=== PATIENT | male | born 1970 | race Hispanic/Latino ===

== ENCOUNTER 2019-12-07 13:24 | Outpatient (CLI) | payer MEDICARE, BC ==
--- NOTE | 2019-12-07 14:15 | RAD ---
2 VIEW CHEST: Date: 12/07/2019 HISTORY: Shortness of breath. No comparison. FINDINGS: There are rather diffuse bilateral hazy peripheral infiltrates seen throughout both lungs. COVID pneu monia should be excluded. Heart and mediastinum unremarkable. IMPRESSION: Bilateral peripheral hazy infiltrates. POS: AH
== END 2019-12-07 13:25 | disposition home or self-care (01) ==
LOC: BICRAD 13:24
PROVIDERS: ATTEND Internal Medicine
DX: R06.02 Shortness of breath (principal); R91.8 Other nonspecific abnormal finding of lung field
CPT/HCPCS: 71046

== ENCOUNTER 2021-08-30 13:37 | Outpatient (CLI) | payer MEDICARE, BC | END 2021-08-30 13:38 | disposition home or self-care (01) | LOC: ULT 13:37 | PROVIDERS: ATTEND Internal Medicine Gastroenterology | DX: R79.89 Other specified abnormal findings of blood chemistry (principal); R16.1 Splenomegaly, not elsewhere classified; Z86.010 Personal history of colon polyps | CPT/HCPCS: 76705 ==

== ENCOUNTER 2021-09-10 14:50 | Outpatient (CLI) | payer MEDICARE, BC ==
[2021-09-11 00:11] LABS: SARS-CoV-2 PCR by NAA Not Detected (NotDetected)
== END 2021-09-10 14:51 | disposition home or self-care (01) ==
LOC: LABBT 14:50
PROVIDERS: ATTEND Internal Medicine Gastroenterology
DX: R79.89 Other specified abnormal findings of blood chemistry (principal); Z20.822 Contact with and (suspected) exposure to COVID-19
CPT/HCPCS: U0003; U0005

== ENCOUNTER 2021-09-13 08:01 | Day surgery (SDC) | payer MEDICARE, BC ==
[2021-09-11 14:14] VITALS: BMI 27.4
[2021-09-13 08:05] LABS: #Basophils 0.1 thou/uL (0.0-0.2); #Eosinphils 0.5 thou/uL (0.0-0.7); #Lymphocytes 0.6 thou/uL (1.20-3.40); #Monocytes 0.3 thou/uL (0.11-0.59); #Neutrophils 2.7 thou/uL (1.40-6.50); %Basophils 1.3 % (0.0-1.0); %Lymphocytes 14.1 % (21.0-51.0); %Monocytes 8.1 % (0.0-10.0); %Neutrophils 64.5 % (42.0-75.0); Mean Corpuscular HGB CONC 32.1 g/dL (32.0-36.0); Mean Corpuscular Hemoglobin 34.2 pg (27.0-31.0); Red Blood Cell (RBC) Count 2.93 mill/uL (4.70-6.10); White Blood Cell (WBC) Count 4.2 thou/uL (4.8-10.8)
[2021-09-13 08:10] LABS: Prothrombin Time 13.3 sec (12.0-14.7)
[2021-09-13 08:11] LABS: PTT 26.6 sec (22.9-36.1)
[2021-09-13 08:26] LABS: Mean Platelet Volume 8.2 fL (7.4-10.4); Platelet Count 77 thou/uL (130-400); RBC Distribution Width 14.4 % (11.5-14.5)
[2021-09-13 11:56] VITALS: BP 206/109; TEMP 98.4
== END 2021-09-13 10:05 | disposition home or self-care (01) ==
LOC: ULT 08:01
PROVIDERS: ATTEND Internal Medicine Gastroenterology
DX: R79.89 Other specified abnormal findings of blood chemistry (principal); Z53.09 Procedure and treatment not carried out because of other contraindication; Z79.84 Long term (current) use of oral hypoglycemic drugs; Z79.899 Other long term (current) drug therapy
CPT/HCPCS: 36415; 85025; 85610; 85730

== ENCOUNTER → 2022-01-31 | Day surgery (SDC) | payer MEDICARE, BC ==
[~2022-01-31] MED LIST: Prevnar 13-Val Conj/PF 0.5 ML SYRINGE IM ONE
[2022-01-31 08:19] LABS: #Eosinphils 0.4 thou/uL (0.0-0.7); #Lymphocytes 0.6 thou/uL (1.20-3.40); #Monocytes 0.4 thou/uL (0.11-0.59); #Neutrophils 2.5 thou/uL (1.40-6.50); %Basophils 0.8 % (0.0-1.0); %Eosinophils 10.8 % (0.0-10.0); %Lymphocytes 15.9 % (21.0-51.0); %Monocytes 9.6 % (0.0-10.0); Hemoglobin 11.1 g/dL (14.0-18.0); Mean Corpuscular HGB CONC 32.3 g/dL (32.0-36.0); Mean Corpuscular Hemoglobin 34.6 pg (27.0-31.0); Mean Platelet Volume 8.8 fL (7.4-10.4); Platelet Count 79 thou/uL (130-400); RBC Distribution Width 13.9 % (11.5-14.5)
[2022-01-31 08:28] LABS: PTT 27.7 sec (22.9-36.1)
== END | disposition home or self-care (01) ==
LOC: ULT 07:42
PROVIDERS: ATTEND Internal Medicine Gastroenterology
DX: R79.89 Other specified abnormal findings of blood chemistry (principal); I12.0 Hypertensive chronic kidney disease with stage 5 chronic kidney disease or end stage renal disease; E11.22 Type 2 diabetes mellitus with diabetic chronic kidney disease; N18.6 End stage renal disease; Z53.09 Procedure and treatment not carried out because of other contraindication; Z99.2 Dependence on renal dialysis
CPT/HCPCS: 36415; 85025; 85610; 85730

== ENCOUNTER 2023-05-31 12:00 | Inpatient (IN) | payer MEDICARE, BC ==
[2023-05-31] MEDS ORDERED: Morphine 2 MG/ML VIAL ONE ×2 (12:55→14:30)
[2023-05-31 13:29] LABS: #Eosinphils 0.2 thou/uL (0.0-0.7); #Monocytes 0.2 thou/uL (0.11-0.59); #Neutrophils 1.9 thou/uL (1.40-6.50); %Basophils 0.7 % (0.0-1.0); %Lymphocytes 14.6 % (21.0-51.0); %Neutrophils 69.7 % (42.0-75.0); Hematocrit 22.9 % (42.0-52.0); Hemoglobin 6.8 g/dL (14.0-18.0); Mean Corpuscular HGB CONC 29.7 g/dL (32.0-36.0); Mean Corpuscular Hemoglobin 28.9 pg (27.0-31.0); Mean Corpuscular Volume 97.4 fl (78.0-98.0); Mean Platelet Volume 12.4 fL (7.4-10.4); Platelet Count 47 10x3/uL (130-400); RBC Distribution Width 20.5 % (11.5-14.5); Red Blood Cell (RBC) Count 2.35 mill/uL (4.70-6.10); White Blood Cell (WBC) Count 2.7 10x3/uL (4.8-10.8)
[2023-05-31 13:42] LABS: INR-International Normal Ratio 1.2; PTT 28.6 sec (22.9-36.1); Prothrombin Time 14.8 sec (12.0-14.7)
[2023-05-31 13:43] LABS: ALT (SGPT) 34 U/L (8-55); AST (SGOT) 42 U/L (5-34); Albumin 3.1 g/dL (3.5-5.0); Alkaline Phosphatase 189 U/L (40-110); Anion Gap 14 mmol/L (10-20); BUN (Urea Nitrogen) 23 mg/dL (8.4-25.7); Bilirubin, Total 1.2 mg/dL (0.2-1.2); Calc. Creatinine Clearance 0 mL/min (70-130); Calcium 8.8 mg/dL (7.8-10.44); Carbon Dioxide 26 mmol/L (22-29); Chloride 99 mmol/L (98-107); Estimated GFR 9; Globulin 3.2 g/dL (2.4-3.5); Glucose 168 mg/dL (70-105); Potassium 3.7 mmol/L (3.5-5.1); Protein, Total 6.3 g/dL (6.0-8.3); Sodium 135 mmol/L (136-145)
[2023-05-31] MEDS ORDERED: Boostrix 0.5 ML (Tdap) VIAL (>/=7 yrs of age) ONE (14:30)
[2023-05-31] MEDS ORDERED: Lidocaine 1% w/Epinephrine 1:100K 20 ML VIAL ONE (15:03)
[2023-05-31] MEDS ORDERED: Ondansetron PF 4 MG/2 ML Vial IVP PRN (17:51)
[2023-05-31] MEDS ORDERED: Dextrose 50% Abboject 50 ML SYRINGE SLOW IVP PRN (17:54)
[2023-05-31] MEDS ORDERED: HumaLOG 300 UNITS/3 ML VIAL SC PRN ×2 (17:54)
[2023-05-31] MEDS ORDERED: Glucagon 1 MG/ML KIT IM PRN (17:54)
[2023-05-31] MEDS ORDERED: Dextrose 5% in Water 1,000 ML IV PRN (17:54)
[2023-05-31] MEDS ORDERED: Octreotide Acetate 1,250 MCG in Sodium Chloride 0.9% 250 ML 250 ML IVPB SCH (18:30)
[2023-05-31 18:41] LABS: Magnesium 2.5 mg/dL (1.6-2.6); Phosphorus 6.3 mg/dL (2.3-4.7)
[2023-05-31 19:37] VITALS: BMI 28.8
[2023-05-31] MEDS ORDERED: hydrALAZINE 20 MG/ML VIAL SLOW IVP PRN (19:52)
[2023-05-31] MEDS ORDERED: cefTRIAXone (ROCEPHIN) 2 GM VIAL ONE (20:38)
[2023-05-31] MEDS ORDERED: Pantoprazole 40 MG VIAL ONE (20:39)
[2023-05-31] MEDS ORDERED: Sodium Chloride 0.9% 100 ML ONE (20:40)
[2023-05-31 20:52] LABS: Hematocrit 21.9 % (42.0-52.0); Hemoglobin 6.7 g/dL (14.0-18.0)
[2023-05-31] MEDS: Pantoprazole 40 MG VIAL IVP SCH (20:54)
[2023-05-31] MEDS: cefTRIAXone\\ROCEPHIN 2 GM in Sodium Chloride 0.9% 100 ML IVPB SCH (20:54)
[2023-05-31] MEDS ORDERED: EPOETIN ALFA-EPBX 10,000 UNITS/ML VIAL SC SCH (21:00)
[2023-06-01] MEDS ORDERED: traMADol HCl 50 MG TAB PO PRN (01:12)
[2023-06-01] MEDS ORDERED: traMADol HCl 50 MG TAB ONE (02:29)
[2023-06-01 08:38] LABS: #Eosinphils 0.1 thou/uL (0.0-0.7); #Monocytes 0.3 thou/uL (0.11-0.59); #Neutrophils 2.1 thou/uL (1.40-6.50); %Basophils 1.4 % (0.0-1.0); %Eosinophils 3.8 % (0.0-10.0); %Lymphocytes 12.4 % (21.0-51.0); %Neutrophils 70.4 % (42.0-75.0); Hematocrit 26.8 % (42.0-52.0); Hemoglobin 8.4 g/dL (14.0-18.0); Mean Corpuscular HGB CONC 31.3 g/dL (32.0-36.0); Mean Corpuscular Hemoglobin 29.3 pg (27.0-31.0); Mean Platelet Volume 13.1 fL (7.4-10.4); RBC Distribution Width 19.4 % (11.5-14.5); Red Blood Cell (RBC) Count 2.87 mill/uL (4.70-6.10); White Blood Cell (WBC) Count 2.9 10x3/uL (4.8-10.8)
[2023-06-01] MEDS: Folic Acid/Vit B Comp W-C PO SCH (08:41)
[2023-06-01] MEDS: Cholecalciferol 1,000 UNITS (25 MCG) TAB PO SCH (08:41)
[2023-06-01 08:45] LABS: Mean Corpuscular Volume 93.4 fl (78.0-98.0); Platelet Count 40 10x3/uL (130-400)
[2023-06-01 08:50] LABS: ALT (SGPT) 27 U/L (8-55); AST (SGOT) 39 U/L (5-34); Albumin 2.7 g/dL (3.5-5.0); Alkaline Phosphatase 145 U/L (40-110); Anion Gap 21 mmol/L (10-20); BUN (Urea Nitrogen) 29 mg/dL (8.4-25.7); Bilirubin, Total 1.4 mg/dL (0.2-1.2); Calc. Creatinine Clearance 11 mL/min (70-130); Calcium 8.1 mg/dL (7.8-10.44); Carbon Dioxide 20 mmol/L (22-29); Chloride 101 mmol/L (98-107); Estimated GFR 6; Glucose 140 mg/dL (70-105); Potassium 4.6 mmol/L (3.5-5.1); Protein, Total 5.7 g/dL (6.0-8.3); Sodium 137 mmol/L (136-145)
[2023-06-01] MEDS: Pantoprazole 40 MG VIAL IVP SCH ×2 (08:59→20:06)
[2023-06-01] MEDS ORDERED: Iopamidol-370 76% 500 ML MDV (1 ML CHARGE) ONE (11:02)
[2023-06-01] MEDS ORDERED: PROPOFOL 20 ML ONE ×2 (11:29→11:54)
[2023-06-01] MEDS ORDERED: Lidocaine 1% PF 5 ML VIAL ONE (11:40)
[2023-06-01] MEDS: cefTRIAXone\\ROCEPHIN 2 GM in Sodium Chloride 0.9% 100 ML IVPB SCH (20:06)
[2023-06-02 08:20] LABS: #Eosinphils 0.1 thou/uL (0.0-0.7); #Monocytes 0.3 thou/uL (0.11-0.59); #Neutrophils 4.5 thou/uL (1.40-6.50); %Basophils 0.6 % (0.0-1.0); %Eosinophils 1.2 % (0.0-10.0); %Lymphocytes 5.6 % (21.0-51.0); %Monocytes 6.2 % (0.0-10.0); %Neutrophils 86.2 % (42.0-75.0); Hemoglobin 8.5 g/dL (14.0-18.0); Mean Corpuscular HGB CONC 30.4 g/dL (32.0-36.0); Mean Corpuscular Hemoglobin 29.3 pg (27.0-31.0); Mean Platelet Volume 12.8 fL (7.4-10.4); RBC Distribution Width 19.9 % (11.5-14.5); White Blood Cell (WBC) Count 5.2 10x3/uL (4.8-10.8)
[2023-06-02 08:25] LABS: Mean Corpuscular Volume 96.6 fl (78.0-98.0); Platelet Count 48 10x3/uL (130-400)
[2023-06-02 08:47] LABS: ALT (SGPT) 22 U/L (8-55); AST (SGOT) 27 U/L (5-34); Albumin 2.9 g/dL (3.5-5.0); Alkaline Phosphatase 133 U/L (40-110); Anion Gap 19 mmol/L (10-20); BUN (Urea Nitrogen) 44 mg/dL (8.4-25.7); Calc. Creatinine Clearance 8 mL/min (70-130); Calcium 7.9 mg/dL (7.8-10.44); Carbon Dioxide 19 mmol/L (22-29); Chloride 103 mmol/L (98-107); Estimated GFR 5; Glucose 185 mg/dL (70-105); Potassium 4.6 mmol/L (3.5-5.1); Protein, Total 5.9 g/dL (6.0-8.3); Sodium 136 mmol/L (136-145)
[2023-06-02 09:04] LABS: Hep B Core Total Ab Non-Reactive (NonReactive); Hep B Core Total Index 0.08 S/CO (0-0.79); Hep B Surf Ag Non-Reactive S/CO (NonReactive); Hep C IgG Ab Non-Reactive S/CO (NonReactive); Hep C Index 0.06 S/CO (0-0.79)
[2023-06-02 09:14] LABS: HBSAB Concentration 59.75 mIU/mL; Hep B Surf AB Reactive (NonReactive)
[2023-06-02] MEDS ORDERED: EPOETIN ALFA-EPBX 10,000 UNITS/ML VIAL IVP SCH (12:00)
[2023-06-02] MEDS: Cholecalciferol 1,000 UNITS (25 MCG) TAB PO SCH (14:55)
[2023-06-02] MEDS: Pantoprazole 40 MG VIAL IVP SCH ×2 (14:56→22:42)
[2023-06-02] MEDS: Nadolol 40 MG TAB PO SCH (14:56)
[2023-06-02] MEDS: Folic Acid/Vit B Comp W-C PO SCH (14:56)
[2023-06-02] MEDS ORDERED: Methocarbamol 500 MG TAB PO SCH (15:04)
[2023-06-02] MEDS: cefTRIAXone\\ROCEPHIN 2 GM in Sodium Chloride 0.9% 100 ML IVPB SCH (20:53)
[2023-06-02] MEDS: Methocarbamol 500 MG TAB PO SCH (22:42)
[2023-06-03 04:21] LABS: #Eosinphils 0.2 thou/uL (0.0-0.7); #Monocytes 0.4 thou/uL (0.11-0.59); #Neutrophils 2.8 thou/uL (1.40-6.50); %Eosinophils 4.9 % (0.0-10.0); %Lymphocytes 9.8 % (21.0-51.0); %Monocytes 11.3 % (0.0-10.0); %Neutrophils 72.7 % (42.0-75.0); Hematocrit 27.2 % (42.0-52.0); Hemoglobin 8.1 g/dL (14.0-18.0); Mean Corpuscular HGB CONC 29.8 g/dL (32.0-36.0); Mean Corpuscular Hemoglobin 28.7 pg (27.0-31.0); Mean Corpuscular Volume 96.5 fl (78.0-98.0); Mean Platelet Volume 12.7 fL (7.4-10.4); RBC Distribution Width 19.3 % (11.5-14.5); Red Blood Cell (RBC) Count 2.82 mill/uL (4.70-6.10); White Blood Cell (WBC) Count 3.9 10x3/uL (4.8-10.8)
[2023-06-03 04:27] LABS: Platelet Count 52 10x3/uL (130-400)
[2023-06-03 05:05] LABS: ALT (SGPT) 19 U/L (8-55); AST (SGOT) 24 U/L (5-34); Albumin 2.7 g/dL (3.5-5.0); Alkaline Phosphatase 125 U/L (40-110); Anion Gap 16 mmol/L (10-20); BUN (Urea Nitrogen) 24 mg/dL (8.4-25.7); Bilirubin, Total 0.9 mg/dL (0.2-1.2); Calc. Creatinine Clearance 12 mL/min (70-130); Calcium 8.3 mg/dL (7.8-10.44); Carbon Dioxide 23 mmol/L (22-29); Chloride 101 mmol/L (98-107); Estimated GFR 8; Globulin 3.1 g/dL (2.4-3.5); Glucose 133 mg/dL (70-105); Potassium 3.4 mmol/L (3.5-5.1); Protein, Total 5.8 g/dL (6.0-8.3); Sodium 137 mmol/L (136-145)
[2023-06-03] MEDS: Pantoprazole 40 MG VIAL IVP SCH (08:26)
[2023-06-03] MEDS: Cholecalciferol 1,000 UNITS (25 MCG) TAB PO SCH (08:26)
[2023-06-03] MEDS: Nadolol 40 MG TAB PO SCH (08:26)
[2023-06-03] MEDS: Methocarbamol 500 MG TAB PO SCH (08:27)
[2023-06-03] MEDS: Folic Acid/Vit B Comp W-C PO SCH (08:27)
[2023-06-03 11:43] VITALS: TEMP 98.3
[2023-06-03 12:21] VITALS: BP 158/77
== END 2023-06-03 16:21 | disposition home or self-care (01) | DRG 981 ==
LOC: ERS 12:00 → ERHOLD 17:54 → 2SE 06-01 05:47 → T4-B 06-03 01:30
PROVIDERS: ADMIT Internal Medicine; ATTEND Internal Medicine
PROC: 0HQ0XZZ Repair Scalp Skin, External Approach (ICD-10-PCS; 2023-05-31)
PROC: 30233N1 Transfusion of Nonautologous Red Blood Cells into Peripheral Vein, Percutaneous Approach (ICD-10-PCS; 2023-05-31)
PROC: 0JD00ZZ Extraction of Scalp Subcutaneous Tissue and Fascia, Open Approach (ICD-10-PCS; 2023-05-31)
PROC: 0W3P8ZZ Control Bleeding in Gastrointestinal Tract, Via Natural or Artificial Opening Endoscopic (ICD-10-PCS; principal; 2023-06-01)
PROC: 0DB78ZX Excision of Stomach, Pylorus, Via Natural or Artificial Opening Endoscopic, Diagnostic (ICD-10-PCS; 2023-06-01)
DX: K31.811 Angiodysplasia of stomach and duodenum with bleeding (principal); N18.6 End stage renal disease; D61.818 Other pancytopenia; I48.92 Unspecified atrial flutter; K76.6 Portal hypertension; I12.0 Hypertensive chronic kidney disease with stage 5 chronic kidney disease or end stage renal disease; I85.00 Esophageal varices without bleeding; E11.22 Type 2 diabetes mellitus with diabetic chronic kidney disease; S01.412A Laceration without foreign body of left cheek and temporomandibular area, initial encounter; S81.812A Laceration without foreign body, left lower leg, initial encounter; W19.XXXA Unspecified fall, initial encounter; S70.12XA Contusion of left thigh, initial encounter; K70.31 Alcoholic cirrhosis of liver with ascites; K31.89 Other diseases of stomach and duodenum; K29.70 Gastritis, unspecified, without bleeding; Z88.4 Allergy status to anesthetic agent; Z87.891 Personal history of nicotine dependence; Z99.2 Dependence on renal dialysis; Y92.22 Religious institution as the place of occurrence of the external cause; Z88.8 Allergy status to other drugs, medicaments and biological substances; Z79.899 Other long term (current) drug therapy
CPT/HCPCS: 36415; 36416; 36430; 49083; 70450; 71045; 74176; 76705; 80053; 82274; 83036; 83605; 83735; 83880; 84100; 84145; 85025; 85610; 85730; 86704; 86850; 86900; 86901; 87040; 88305; 88342; 90715; 90935; C9113; G0257; J0360; J0696; J2272; J2597; J2704; J3490; P9016; Q5106; Q9967

== ENCOUNTER 2024-12-27 10:47 | Inpatient (IN) | payer MEDICARE, BC ==
[2024-12-27 11:36] LABS: #Basophils Less than 0.03 10x3/uL (0.0-0.2); #Eosinophils 0.20 10x3/uL (0.0-0.7); #Monocytes 0.44 10x3/uL (0.11-0.59); #Neutrophils 3.33 10x3/uL (1.40-6.50); %Basophils 0.4 % (0.0-1.0); %Eosinophils 4.2 % (0.0-10.0); %Lymphocytes 16.1 % (21.0-51.0); %Monocytes 9.2 % (0.0-10.0); %Neutrophils 69.7 % (42.0-75.0); Hematocrit 24.4 % (42.0-52.0); Hemoglobin 7.3 g/dL (14.0-18.0); Mean Corpuscular Hemoglobin 31.5 pg (27.0-31.0); Mean Corpuscular Volume 105.2 fL (78.0-98.0); Platelet Count 85 10x3/uL (130-400); Red Blood Cell (RBC) Count 2.32 mill/uL (4.70-6.10); White Blood Cell (WBC) Count 4.78 10x3/uL (4.8-10.8)
[2024-12-27 11:39] LABS: Acetaminophen Less than 10 mcg/mL (Less than 10); Salicylate Less than 8.0 mg/dL (Less than 8.0)
[2024-12-27 11:40] LABS: ALT (SGPT) 27 U/L (Less than 45); AST (SGOT) 39 U/L (11-34); Albumin 2.1 g/dL (3.1-4.5); Alkaline Phosphatase 164 U/L (40-110); Anion Gap 13 mmol/L (10-20); BUN (Urea Nitrogen) 25 mg/dL (8.4-25.7); Bilirubin, Total 1.1 mg/dL (0.3-1.2); Calc. Creatinine Clearance 0 mL/min (70-130); Calcium 8.0 mg/dL (7.8-10.44); Carbon Dioxide 26 mmol/L (22-29); Chloride 100 mmol/L (98-107); Globulin 4.3 g/dL (2.4-3.5); Glucose 113 mg/dL (70-105); Potassium 3.5 mmol/L (3.5-5.1); Sodium 135 mmol/L (136-145)
[2024-12-27] MEDS ORDERED: Lactulose 20 GM (30 mL) UDCUP ONE (11:50)
[2024-12-27 12:48] LABS: Anisocytosis MODERATE=16-30 cells HPF (0-5); Burr Cells SLIGHT = 2-5 cells HPF (0-1); Macrocytosis SLIGHT = 6-15 cells HPF (0-5); Platelet Adequacy Comment Platelets Decreased; Polychromasia SLIGHT = 2-3 cells HPF (0-2); Schistocytes SLIGHT = 2-5 cells HPF (0-1)
[2024-12-27] MEDS ORDERED: Dextrose 50% Abboject 50 ML SYRINGE SLOW IVP PRN (15:41)
[2024-12-27] MEDS ORDERED: Glucagon 1 MG/ML KIT IM PRN (15:41)
[2024-12-27 18:14] VITALS: BMI 27.8
[2024-12-27 19:39] LABS: PTT 37.8 sec (22.9-36.1)
[2024-12-27] MEDS ORDERED: Lactulose 20 GM (30 mL) UDCUP PO PRN (19:41)
[2024-12-27 20:03] LABS: INR-International Normal Ratio 1.2; Prothrombin Time 15.7 sec (12.0-14.7)
[2024-12-27] MEDS: Pantoprazole 40 MG DR.TAB PO SCH (20:30)
[2024-12-27] MEDS ORDERED: Heparin 5,000 UNITS/ML VIAL SC SCH (21:00)
[2024-12-28 04:48] LABS: ALT (SGPT) 19 U/L (Less than 45); AST (SGOT) 29 U/L (11-34); Albumin 1.7 g/dL (3.1-4.5); Alkaline Phosphatase 124 U/L (40-110); Anion Gap 12 mmol/L (10-20); BUN (Urea Nitrogen) 37 mg/dL (8.4-25.7); Bilirubin, Total 0.6 mg/dL (0.3-1.2); Calc. Creatinine Clearance 12 mL/min (70-130); Calcium 8.0 mg/dL (7.8-10.44); Carbon Dioxide 26 mmol/L (22-29); Chloride 102 mmol/L (98-107); Globulin 3.4 g/dL (2.4-3.5); Glucose 161 mg/dL (70-105); Potassium 5.0 mmol/L (3.5-5.1); Sodium 135 mmol/L (136-145)
[2024-12-28] MEDS: cefTRIAXone\\ROCEPHIN 1 GM in Sodium Chloride 0.9% 100 ML IVPB SCH (05:16)
[2024-12-28] MEDS: Octreotide Acetate 1,250 MCG in Sodium Chloride 0.9% 250 ML 250 ML IVPB SCH (05:27)
[2024-12-28 06:07] LABS: Hematocrit 19.7 % (42.0-52.0); Hemoglobin 5.9 g/dL (14.0-18.0)
[2024-12-28 07:29] LABS: HBSAB Concentration 27.03 mIU/mL; Hep B Core Total Ab NONREACTIVE (NonReactive); Hep B Core Total Index 0.16 S/CO (0-0.79); Hep B Surf Ag NONREACTIVE S/CO (NonReactive); Hep C IgG Ab NONREACTIVE S/CO (NonReactive); Hep C Index 0.13 S/CO (0-0.79)
[2024-12-28] MEDS: Folic Acid/Vit B Comp W-C PO SCH (07:53)
[2024-12-28] MEDS: Cholecalciferol 1,000 UNITS (25 MCG) TAB PO SCH (07:53)
[2024-12-28] MEDS: Pantoprazole 40 MG VIAL IVP SCH (07:53)
[2024-12-28] MEDS ORDERED: Pantoprazole 40 MG DR.TAB PO SCH (09:00)
[2024-12-28] MEDS ORDERED: PROPOFOL 40 ML ONE (11:17)
[2024-12-28] MEDS ORDERED: Calcium Chloride 1 GM/10 ML Abboject SYRINGE ONE (12:00)
[2024-12-28] MEDS ORDERED: Ondansetron PF 4 MG/2 ML Vial ONE (12:03)
[2024-12-28] MEDS ORDERED: Rocuronium Bromide 10 MG/ML (10ML VIAL) ONE (12:15)
[2024-12-28] MEDS ORDERED: SUGAMMADEX SODIUM 200 MG/2 ML VIAL ONE (12:16)
[2024-12-28] MEDS ORDERED: PHENYLEPHRINE-NS 100 MCG/ML 10 ML SYRINGE ONE ×2 (12:20→12:36)
[2024-12-28] MEDS ORDERED: SUCCINYLCHOLINE/SOD CL,ISO/PF 200 MG/10 ML SYRINGE FS ONE (12:20)
[2024-12-28 17:18] LABS: Hematocrit 29.1 % (42.0-52.0); Hemoglobin 8.9 g/dL (14.0-18.0)
[2024-12-28] MEDS: EPOETIN ALFA-EPBX (ESRD) 10,000 UNITS/ML VIAL SC SCH (18:00)
[2024-12-28] MEDS: Pantoprazole 40 MG DR.TAB PO SCH (20:20)
[2024-12-28] MEDS: diphenhydrAMINE 25 MG CAP PO PRN (23:04)
[2024-12-29 04:38] LABS: #Basophils Less than 0.03 10x3/uL (0.0-0.2); #Eosinophils 0.18 10x3/uL (0.0-0.7); #Monocytes 0.41 10x3/uL (0.11-0.59); #Neutrophils 1.63 10x3/uL (1.40-6.50); %Basophils 0.7 % (0.0-1.0); %Eosinophils 6.7 % (0.0-10.0); %Lymphocytes 16.4 % (21.0-51.0); %Monocytes 15.2 % (0.0-10.0); %Neutrophils 60.6 % (42.0-75.0); Hematocrit 25.9 % (42.0-52.0); Hemoglobin 8.2 g/dL (14.0-18.0); Mean Corpuscular Hemoglobin 32.4 pg (27.0-31.0); Mean Corpuscular Volume 102.4 fL (78.0-98.0); Platelet Count 44 10x3/uL (130-400); Red Blood Cell (RBC) Count 2.53 mill/uL (4.70-6.10); White Blood Cell (WBC) Count 2.69 10x3/uL (4.8-10.8)
[2024-12-29 04:51] LABS: ALT (SGPT) 17 U/L (Less than 45); AST (SGOT) 32 U/L (11-34); Albumin 1.8 g/dL (3.1-4.5); Alkaline Phosphatase 114 U/L (40-110); Anion Gap 13 mmol/L (10-20); BUN (Urea Nitrogen) 30 mg/dL (8.4-25.7); Bilirubin, Total 1.4 mg/dL (0.3-1.2); Calc. Creatinine Clearance 13 mL/min (70-130); Calcium 8.2 mg/dL (7.8-10.44); Carbon Dioxide 26 mmol/L (22-29); Chloride 101 mmol/L (98-107); Globulin 3.6 g/dL (2.4-3.5); Glucose 186 mg/dL (70-105); Potassium 4.7 mmol/L (3.5-5.1); Sodium 135 mmol/L (136-145)
[2024-12-29] MEDS ORDERED: Albumin 25% 25 GM (100 mL) BOT IVPB SCH (09:15)
[2024-12-29] MEDS ORDERED: Octreotide Acetate 1,250 MCG in Sodium Chloride 0.9% 250 ML 250 ML IVPB SCH (14:30)
[2024-12-30 06:07] LABS: #Basophils 0.03 10x3/uL (0.0-0.2); #Eosinophils 0.14 10x3/uL (0.0-0.7); #Monocytes 0.39 10x3/uL (0.11-0.59); #Neutrophils 1.65 10x3/uL (1.40-6.50); %Basophils 1.1 % (0.0-1.0); %Eosinophils 5.3 % (0.0-10.0); %Lymphocytes 15.6 % (21.0-51.0); %Monocytes 14.8 % (0.0-10.0); %Neutrophils 62.8 % (42.0-75.0); Hematocrit 23.9 % (42.0-52.0); Hemoglobin 7.2 g/dL (14.0-18.0); Mean Corpuscular Hemoglobin 32.3 pg (27.0-31.0); Mean Corpuscular Volume 107.2 fL (78.0-98.0); Platelet Count 41 10x3/uL (130-400); Red Blood Cell (RBC) Count 2.23 mill/uL (4.70-6.10); White Blood Cell (WBC) Count 2.63 10x3/uL (4.8-10.8)
[2024-12-30 06:20] LABS: ALT (SGPT) 13 U/L (Less than 45); AST (SGOT) 26 U/L (11-34); Albumin 2.2 g/dL (3.1-4.5); Alkaline Phosphatase 101 U/L (40-110); Anion Gap 11 mmol/L (10-20); BUN (Urea Nitrogen) 21 mg/dL (8.4-25.7); Bilirubin, Total 1.2 mg/dL (0.3-1.2); Calc. Creatinine Clearance 15 mL/min (70-130); Calcium 7.9 mg/dL (7.8-10.44); Carbon Dioxide 27 mmol/L (22-29); Chloride 102 mmol/L (98-107); Globulin 3.3 g/dL (2.4-3.5); Glucose 198 mg/dL (70-105); Potassium 4.5 mmol/L (3.5-5.1); Sodium 135 mmol/L (136-145)
[2024-12-30 08:55] VITALS: BP 153/70; TEMP 98.6
== END 2024-12-30 10:03 | disposition home or self-care (01) | DRG 70 ==
LOC: ERS 10:47 → 2NO 14:51 → OBSVTOIN 12-28 17:24
PROVIDERS: ADMIT Family Medicine; ATTEND Family Medicine
PROC: 0W3P8ZZ Control Bleeding in Gastrointestinal Tract, Via Natural or Artificial Opening Endoscopic (ICD-10-PCS; principal; 2024-12-28)
PROC: 30233N1 Transfusion of Nonautologous Red Blood Cells into Peripheral Vein, Percutaneous Approach (ICD-10-PCS; 2024-12-28)
PROC: 3E03329 Introduction of Other Anti-infective into Peripheral Vein, Percutaneous Approach (ICD-10-PCS; 2024-12-28)
PROC: 30233J1 Transfusion of Nonautologous Serum Albumin into Peripheral Vein, Percutaneous Approach (ICD-10-PCS; 2024-12-29)
DX: G93.41 Metabolic encephalopathy (principal); K31.811 Angiodysplasia of stomach and duodenum with bleeding; N18.6 End stage renal disease; I48.92 Unspecified atrial flutter; I85.10 Secondary esophageal varices without bleeding; I12.0 Hypertensive chronic kidney disease with stage 5 chronic kidney disease or end stage renal disease; D61.818 Other pancytopenia; E11.22 Type 2 diabetes mellitus with diabetic chronic kidney disease; R94.31 Abnormal electrocardiogram [ECG] [EKG]; K74.60 Unspecified cirrhosis of liver; K76.82 Hepatic encephalopathy; F10.90 Alcohol use, unspecified, uncomplicated; D73.1 Hypersplenism; D63.1 Anemia in chronic kidney disease; D69.59 Other secondary thrombocytopenia; Z98.890 Other specified postprocedural states; Z87.891 Personal history of nicotine dependence; Z79.84 Long term (current) use of oral hypoglycemic drugs; Z79.899 Other long term (current) drug therapy; Z88.8 Allergy status to other drugs, medicaments and biological substances
CPT/HCPCS: 36415; 36416; 36430; 70450; 71045; 80053; 80307; 82140; 83605; 84100; 85025; 85610; 85730; 86704; 86706; 86803; 86850; 86900; 86901; 87340; 93005; 94760; 96374; J0696; J1630; J1815; J2354; J2405; J2470; J2704; J7050; P9016; Q5105

== ENCOUNTER 2025-04-06 10:43 | Inpatient (IN) | payer MEDICARE, BC ==
[2025-04-06] MEDS ORDERED: Iopamidol-370 76% 500 ML MDV (1 ML CHARGE) ONE (11:03)
[2025-04-06 11:38] LABS: Actual Bicarbonate (HCO3a) 15.2 mEq/L (22-28); Analyzer IN Cardio ER; Base Excess (BEa) -8.8 mEq/L (-2.0 to +3.0); CO2 Tension 25.5 mmHg (35.0-45.0); Calcium, Ionized (arterial) 1.14 mmol/L (1.12-1.30); Hematocrit-ABG 20 % (42.0-52.0); Hemoglobin (Hb) 6.7 g/dL (14.0-18.0); O2 Tension (PaO2), arterial 597.9 mmHg (80.0-100.0); Potassium - ABG Lab 4.11 mmol/L (3.70-5.30); pH, Arterial 7.393 (7.35-7.45)
[2025-04-06 11:39] LABS: #Basophils Less than 0.03 10x3/uL (0.0-0.2); #Eosinophils Less than 0.03 10x3/uL (0.0-0.7); #Monocytes 0.24 10x3/uL (0.11-0.59); #Neutrophils 3.40 10x3/uL (1.40-6.50); %Basophils 0.0 % (0.0-1.0); %Eosinophils 0.3 % (0.0-10.0); %Lymphocytes 4.4 % (21.0-51.0); %Monocytes 6.2 % (0.0-10.0); %Neutrophils 88.3 % (42.0-75.0); Hematocrit 17.9 % (42.0-52.0); Hemoglobin 5.2 g/dL (14.0-18.0); Mean Corpuscular Hemoglobin 30.1 pg (27.0-31.0); Mean Corpuscular Volume 103.5 fL (78.0-98.0); Platelet Count 33 10x3/uL (130-400); Red Blood Cell (RBC) Count 1.73 mill/uL (4.70-6.10); White Blood Cell (WBC) Count 3.85 10x3/uL (4.8-10.8)
[2025-04-06 11:43] LABS: ALV-art Gradient 83.225 mmHg (0-20); Puncture Site Right Brachial art
[2025-04-06 11:46] LABS: INR-International Normal Ratio 1.6; PTT 33.9 sec (22.9-36.1); Prothrombin Time 19.5 sec (12.0-14.7)
[2025-04-06 11:49] LABS: ALT (SGPT) 18 U/L (Less than 45); AST (SGOT) 46 U/L (11-34); Acetaminophen Less than 10 mcg/mL (Less than 10); Albumin 1.5 g/dL (3.1-4.5); Alkaline Phosphatase 163 U/L (40-110); Anion Gap 22 mmol/L (10-20); BUN (Urea Nitrogen) 70 mg/dL (8.4-25.7); Bilirubin, Total 0.7 mg/dL (0.3-1.2); Calc. Creatinine Clearance 0 mL/min (70-130); Calcium 8.0 mg/dL (7.8-10.44); Carbon Dioxide 12 mmol/L (22-29); Chloride 105 mmol/L (98-107); Globulin 3.3 g/dL (2.4-3.5); Glucose 327 mg/dL (70-105); Magnesium 2.1 mg/dL (1.6-2.6); Potassium 4.2 mmol/L (3.5-5.1); Salicylate Less than 8.0 mg/dL (Less than 8.0); Sodium 135 mmol/L (136-145)
[2025-04-06] MEDS ORDERED: cefTRIAXone (ROCEPHIN) 1 GM VIAL ONE (12:06)
[2025-04-06] MEDS ORDERED: Octreotide Acetate 1,250 MCG in Sodium Chloride 0.9% 250 ML 250 ML IVPB SCH (12:30)
[2025-04-06 12:34] LABS: Anisocytosis SLIGHT = 6-15 cells (100X) (0-5/hpf); Burr Cells SLIGHT = 2-5 cells (100X) (0-1/hpf); Macrocytosis SLIGHT = 6-15 cells (100X) (0-5/hpf); Plasma Cells 0 % (0-0); Platelet Adequacy Comment Appears Decreased; Polychromasia SLIGHT = 2-3 cells (100X) (0-2/hpf)
[2025-04-06] MEDS ORDERED: Ondansetron PF 4 MG/2 ML Vial IVP PRN (12:50)
[2025-04-06] MEDS ORDERED: Electrolyte Replacement Protocol 1 EACH FS SCH (13:00)
[2025-04-06] MEDS ORDERED: Glucagon 1 MG/ML KIT IM PRN (13:28)
[2025-04-06 14:53] LABS: Hematocrit 23.2 % (42.0-52.0)
[2025-04-06 15:40] LABS: #Basophils Less than 0.03 10x3/uL (0.0-0.2); #Eosinophils Less than 0.03 10x3/uL (0.0-0.7); #Monocytes 0.35 10x3/uL (0.11-0.59); #Neutrophils 3.42 10x3/uL (1.40-6.50); %Basophils 0.2 % (0.0-1.0); %Eosinophils 0.2 % (0.0-10.0); %Lymphocytes 7.5 % (21.0-51.0); %Monocytes 8.5 % (0.0-10.0); %Neutrophils 83.1 % (42.0-75.0); Hemoglobin 7.3 g/dL (14.0-18.0); Mean Corpuscular Hemoglobin 30.7 pg (27.0-31.0); Mean Corpuscular Volume 95.4 fL (78.0-98.0); Platelet Count 36 10x3/uL (130-400); Red Blood Cell (RBC) Count 2.38 mill/uL (4.70-6.10); White Blood Cell (WBC) Count 4.12 10x3/uL (4.8-10.8)
[2025-04-06 16:02] LABS: RBC Count-Automated (BF) 1702 /cu.mm; WBC/Nucleated-Auto (BF) 19 /cu.mm
[2025-04-06] MEDS ORDERED: Fentanyl BOLUS 100 ML IVPB PRN (16:30)
[2025-04-06] MEDS ORDERED: Propofol BOLUS 1,000 MG/100 ML VIAL IV PRN (16:30)
[2025-04-06 16:39] LABS: BF Segmented Neutrophils 10 %; Cell Count Non Hematic 28 %
[2025-04-06] MEDS: Ventilator Sedation Protocol 1 EACH FS ONE (16:40)
[2025-04-06] MEDS: Insulin Glargine 30 UNITS/0.3 ML VIAL SC SCH (16:46)
[2025-04-06] MEDS: Albumin 25% 25 GM (100 mL) BOT IVPB PRN (17:44)
[2025-04-06 18:58] LABS: #Basophils Less than 0.03 10x3/uL (0.0-0.2); #Eosinophils 0.03 10x3/uL (0.0-0.7); #Monocytes 0.26 10x3/uL (0.11-0.59); #Neutrophils 4.38 10x3/uL (1.40-6.50); %Basophils 0.2 % (0.0-1.0); %Eosinophils 0.6 % (0.0-10.0); %Lymphocytes 7.8 % (21.0-51.0); %Monocytes 5.1 % (0.0-10.0); %Neutrophils 85.9 % (42.0-75.0); Hematocrit 27.4 % (42.0-52.0); Hemoglobin 9.1 g/dL (14.0-18.0); Mean Corpuscular Hemoglobin 30.7 pg (27.0-31.0); Mean Corpuscular Volume 92.6 fL (78.0-98.0); Platelet Count 47 10x3/uL (130-400); Red Blood Cell (RBC) Count 2.96 mill/uL (4.70-6.10); White Blood Cell (WBC) Count 5.10 10x3/uL (4.8-10.8)
[2025-04-06] MEDS ORDERED: Norepinephrine 8 MG/0.9% NS 250 ML IVPB SCH (19:15)
[2025-04-06] MEDS: Norepinephrine 16 MG in Dextrose 5% in Water 234 ML IVPB PRN (19:45)
[2025-04-06 21:17] LABS: Hematocrit 29.4 % (42.0-52.0)
[2025-04-06] MEDS: Pantoprazole 40 MG VIAL IVP SCH (21:59)
[2025-04-06] MEDS: Dextrose 50% Abboject 50 ML SYRINGE SLOW IVP PRN (23:53)
[2025-04-07 06:04] LABS: #Basophils 0.03 10x3/uL (0.0-0.2); #Eosinophils 0.09 10x3/uL (0.0-0.7); #Monocytes 0.30 10x3/uL (0.11-0.59); #Neutrophils 1.72 10x3/uL (1.40-6.50); %Basophils 1.2 % (0.0-1.0); %Eosinophils 3.7 % (0.0-10.0); %Lymphocytes 13.0 % (21.0-51.0); %Monocytes 12.2 % (0.0-10.0); %Neutrophils 69.9 % (42.0-75.0); Hematocrit 25.0 % (42.0-52.0); Hemoglobin 8.0 g/dL (14.0-18.0); Mean Corpuscular Hemoglobin 30.8 pg (27.0-31.0); Mean Corpuscular Volume 96.2 fL (78.0-98.0); Platelet Count 39 10x3/uL (130-400); Red Blood Cell (RBC) Count 2.60 mill/uL (4.70-6.10); White Blood Cell (WBC) Count 2.46 10x3/uL (4.8-10.8)
[2025-04-07 06:21] LABS: ALT (SGPT) 20 U/L (Less than 45); AST (SGOT) 46 U/L (11-34); Albumin 2.5 g/dL (3.1-4.5); Alkaline Phosphatase 136 U/L (40-110); Anion Gap 14 mmol/L (10-20); BUN (Urea Nitrogen) 38 mg/dL (8.4-25.7); Bilirubin, Total 2.5 mg/dL (0.3-1.2); Calc. Creatinine Clearance 13 mL/min (70-130); Calcium 8.9 mg/dL (7.8-10.44); Carbon Dioxide 26 mmol/L (22-29); Chloride 104 mmol/L (98-107); Globulin 2.9 g/dL (2.4-3.5); Glucose 62 mg/dL (70-105); Potassium 3.9 mmol/L (3.5-5.1); Sodium 140 mmol/L (136-145)
[2025-04-07] MEDS: FLU (Fluarix Triv) 25-26 (6MOS UP)/PF 45 MCG/0.5 ML Syringe IM ONE (07:16)
[2025-04-07] MEDS: Insulin Glargine 30 UNITS/0.3 ML VIAL SC SCH (08:39)
[2025-04-07 09:13] LABS: Hematocrit 26.2 % (42.0-52.0)
[2025-04-07] MEDS: cefTRIAXone\\ROCEPHIN 1 GM in Sodium Chloride 0.9% 100 ML IVPB SCH (11:00)
[2025-04-07] MEDS: Lactulose 10 GM/15 ML Oral Solution PR SCH (13:44)
[2025-04-07] MEDS: Octreotide Acetate 1,250 MCG in Sodium Chloride 0.9% 250 ML 250 ML IVPB SCH (15:43)
[2025-04-08] MEDS: EPOETIN ALFA-EPBX (ESRD) 10,000 UNITS/ML VIAL IVP SCH (09:15)
[2025-04-08] MEDS ORDERED: Albumin 25% 25 GM (100 mL) BOT IVPB SCH (10:15)
[2025-04-08 10:30] LABS: Anion Gap 16 mmol/L (10-20); BUN (Urea Nitrogen) 49 mg/dL (8.4-25.7); Calc. Creatinine Clearance 13 mL/min (70-130); Calcium 7.6 mg/dL (7.8-10.44); Carbon Dioxide 21 mmol/L (22-29); Chloride 106 mmol/L (98-107); Glucose 147 mg/dL (70-105); Potassium 3.8 mmol/L (3.5-5.1); Sodium 139 mmol/L (136-145)
[2025-04-08] MEDS: Albumin 25% 25 GM (100 mL) BOT IVPB PRN ×2 (10:49→10:50)
[2025-04-08 10:58] LABS: #Basophils Less than 0.03 10x3/uL (0.0-0.2); #Eosinophils 0.08 10x3/uL (0.0-0.7); #Monocytes 0.26 10x3/uL (0.11-0.59); #Neutrophils 1.85 10x3/uL (1.40-6.50); %Basophils 0.4 % (0.0-1.0); %Eosinophils 3.2 % (0.0-10.0); %Lymphocytes 10.5 % (21.0-51.0); %Monocytes 10.5 % (0.0-10.0); %Neutrophils 75.0 % (42.0-75.0); Hematocrit 23.9 % (42.0-52.0); Hemoglobin 7.4 g/dL (14.0-18.0); Mean Corpuscular Hemoglobin 30.5 pg (27.0-31.0); Mean Corpuscular Volume 98.4 fL (78.0-98.0); Platelet Count 28 10x3/uL (130-400); Red Blood Cell (RBC) Count 2.43 mill/uL (4.70-6.10); White Blood Cell (WBC) Count 2.47 10x3/uL (4.8-10.8)
[2025-04-08 10:59] LABS: Anisocytosis MODERATE=16-30 cells HPF (0-5); Burr Cells SLIGHT = 2-5 cells HPF (0-1); Macrocytosis SLIGHT = 6-15 cells HPF (0-5); Platelet Adequacy Comment Significant Decrease; Polychromasia SLIGHT = 2-3 cells HPF (0-2); Reflex for Review?? YES; Smudge Cells 16.0 %
[2025-04-09 07:30] LABS: ALT (SGPT) 18 U/L (Less than 45); AST (SGOT) 42 U/L (11-34); Albumin 2.6 g/dL (3.1-4.5); Alkaline Phosphatase 123 U/L (40-110); Anion Gap 20 mmol/L (10-20); BUN (Urea Nitrogen) 41 mg/dL (8.4-25.7); Bilirubin, Total 1.2 mg/dL (0.3-1.2); Calc. Creatinine Clearance 14 mL/min (70-130); Calcium 8.3 mg/dL (7.8-10.44); Carbon Dioxide 20 mmol/L (22-29); Chloride 102 mmol/L (98-107); Globulin 2.9 g/dL (2.4-3.5); Glucose 108 mg/dL (70-105); Potassium 4.1 mmol/L (3.5-5.1); Sodium 138 mmol/L (136-145)
[2025-04-09 07:42] LABS: Hematocrit 25.2 % (42.0-52.0); Hemoglobin 7.7 g/dL (14.0-18.0); Mean Corpuscular Hemoglobin 31.0 pg (27.0-31.0); Mean Corpuscular Volume 101.6 fL (78.0-98.0); Platelet Count 31 10x3/uL (130-400); Red Blood Cell (RBC) Count 2.48 mill/uL (4.70-6.10); White Blood Cell (WBC) Count 2.00 10x3/uL (4.8-10.8)
[2025-04-09 08:21] LABS: Anisocytosis MODERATE=16-30 cells HPF (0-5); Macrocytosis SLIGHT = 6-15 cells HPF (0-5); Ovalocytes SLIGHT = 2-5 cells HPF (0-1); Platelet Adequacy Comment Significant Decrease; Polychromasia SLIGHT = 2-3 cells HPF (0-2)
[2025-04-09 08:24] LABS: #Basophils Less than 0.03 10x3/uL (0.0-0.2); #Eosinophils 0.06 10x3/uL (0.0-0.7); #Monocytes 0.26 10x3/uL (0.11-0.59); #Neutrophils 1.36 10x3/uL (1.40-6.50); %Basophils 1.0 % (0.0-1.0); %Eosinophils 3.0 % (0.0-10.0); %Lymphocytes 14.1 % (21.0-51.0); %Monocytes 13.1 % (0.0-10.0); %Neutrophils 68.3 % (42.0-75.0)
[2025-04-09] MEDS: Albumin 5% 12.5 GM (250 mL) BOT IVPB SCH (15:52)
[2025-04-10 04:11] LABS: ALT (SGPT) 16 U/L (Less than 45); AST (SGOT) 45 U/L (11-34); Albumin 2.5 g/dL (3.1-4.5); Alkaline Phosphatase 129 U/L (40-110); Anion Gap 20 mmol/L (10-20); BUN (Urea Nitrogen) 57 mg/dL (8.4-25.7); Bilirubin, Total 1.0 mg/dL (0.3-1.2); Calc. Creatinine Clearance 10 mL/min (70-130); Calcium 8.2 mg/dL (7.8-10.44); Carbon Dioxide 21 mmol/L (22-29); Chloride 104 mmol/L (98-107); Globulin 2.8 g/dL (2.4-3.5); Glucose 115 mg/dL (70-105); Potassium 4.2 mmol/L (3.5-5.1); Sodium 141 mmol/L (136-145)
[2025-04-10] MEDS: Lactulose 10 GM/15 ML Oral Solution PR SCH (07:58)
[2025-04-10] MEDS ORDERED: Lactulose 10 GM/15 ML Oral Solution PER TUBE SCH (15:00)
[2025-04-10] MEDS: Lactulose 20 GM (30 mL) UDCUP PER TUBE SCH (15:04)
[2025-04-11 08:15] LABS: ALT (SGPT) 15 U/L (Less than 45); AST (SGOT) 44 U/L (11-34); Albumin 2.1 g/dL (3.1-4.5); Alkaline Phosphatase 134 U/L (40-110); Anion Gap 24 mmol/L (10-20); BUN (Urea Nitrogen) 72 mg/dL (8.4-25.7); Bilirubin, Total 0.6 mg/dL (0.3-1.2); Calc. Creatinine Clearance 8 mL/min (70-130); Calcium 8.0 mg/dL (7.8-10.44); Carbon Dioxide 15 mmol/L (22-29); Chloride 106 mmol/L (98-107); Globulin 2.8 g/dL (2.4-3.5); Glucose 177 mg/dL (70-105); Potassium 4.5 mmol/L (3.5-5.1); Sodium 140 mmol/L (136-145)
[2025-04-11 08:20] LABS: #Basophils 0.03 10x3/uL (0.0-0.2); #Eosinophils 0.09 10x3/uL (0.0-0.7); #Monocytes 0.33 10x3/uL (0.11-0.59); #Neutrophils 2.18 10x3/uL (1.40-6.50); %Basophils 1.0 % (0.0-1.0); %Eosinophils 3.1 % (0.0-10.0); %Lymphocytes 9.0 % (21.0-51.0); %Monocytes 11.4 % (0.0-10.0); %Neutrophils 75.2 % (42.0-75.0); Hematocrit 24.7 % (42.0-52.0); Hemoglobin 7.1 g/dL (14.0-18.0); Mean Corpuscular Hemoglobin 30.6 pg (27.0-31.0); Mean Corpuscular Volume 106.5 fL (78.0-98.0); Platelet Count 35 10x3/uL (130-400); Red Blood Cell (RBC) Count 2.32 mill/uL (4.70-6.10); White Blood Cell (WBC) Count 2.90 10x3/uL (4.8-10.8)
[2025-04-11] MEDS: Albumin 25% 25 GM (100 mL) BOT IVPB SCH (09:27)
[2025-04-11 09:55] LABS: Anisocytosis SLIGHT = 6-15 cells HPF (0-5); Burr Cells SLIGHT = 2-5 cells HPF (0-1); Macrocytosis SLIGHT = 6-15 cells HPF (0-5); Platelet Adequacy Comment Platelets Decreased; Polychromasia SLIGHT = 2-3 cells HPF (0-2)
[2025-04-11 16:09] LABS: Hemoglobin 6.5 g/dL (14.0-18.0)
[2025-04-12 00:35] LABS: Hematocrit 21.4 % (42.0-52.0); Hemoglobin 6.7 g/dL (14.0-18.0); Platelet Count 35 10x3/uL (130-400)
[2025-04-12] MEDS: CALCIUM GLUC 1 GM/NS 50 ML 1 GM in Premix 1 BAG IVPB SCH (01:16)
[2025-04-12 04:50] LABS: Anion Gap 18 mmol/L (10-20); BUN (Urea Nitrogen) 42 mg/dL (8.4-25.7); Calc. Creatinine Clearance 12 mL/min (70-130); Calcium 8.6 mg/dL (7.8-10.44); Carbon Dioxide 23 mmol/L (22-29); Chloride 102 mmol/L (98-107); Glucose 214 mg/dL (70-105); Magnesium 1.8 mg/dL (1.6-2.6); Potassium 3.5 mmol/L (3.5-5.1); Sodium 139 mmol/L (136-145)
[2025-04-12 04:52] LABS: #Basophils Less than 0.03 10x3/uL (0.0-0.2); #Eosinophils 0.10 10x3/uL (0.0-0.7); #Monocytes 0.32 10x3/uL (0.11-0.59); #Neutrophils 1.77 10x3/uL (1.40-6.50); %Basophils 0.4 % (0.0-1.0); %Eosinophils 4.1 % (0.0-10.0); %Lymphocytes 9.8 % (21.0-51.0); %Monocytes 13.1 % (0.0-10.0); %Neutrophils 72.2 % (42.0-75.0); Hematocrit 24.3 % (42.0-52.0); Hemoglobin 7.9 g/dL (14.0-18.0); Mean Corpuscular Hemoglobin 31.0 pg (27.0-31.0); Mean Corpuscular Volume 95.3 fL (78.0-98.0); Platelet Count 36 10x3/uL (130-400); Red Blood Cell (RBC) Count 2.55 mill/uL (4.70-6.10); White Blood Cell (WBC) Count 2.45 10x3/uL (4.8-10.8)
[2025-04-12] MEDS: Octreotide Acetate 1,250 MCG in Sodium Chloride 0.9% 250 ML 250 ML IVPB SCH (07:55)
[2025-04-12] MEDS: Norepinephrine 8 MG/0.9% NS 250 ML ONE (08:10)
[2025-04-12 08:23] LABS: Hematocrit 25.4 % (42.0-52.0); Hemoglobin 8.2 g/dL (14.0-18.0)
[2025-04-12] MEDS ORDERED: Rocuronium Bromide 10 MG/ML (10ML VIAL) ONE (11:40)
[2025-04-12 13:25] LABS: INR-International Normal Ratio 1.3; Prothrombin Time 16.3 sec (12.0-14.7)
[2025-04-12 13:26] LABS: Fibrinogen 225.0 mg/dL (253-463); PTT 36.8 sec (22.9-36.1)
[2025-04-12 13:29] LABS: Hematocrit 29.4 % (42.0-52.0); Hemoglobin 9.3 g/dL (14.0-18.0); Platelet Count 43 10x3/uL (130-400)
[2025-04-12 18:21] LABS: Hematocrit 29.0 % (42.0-52.0); Hemoglobin 9.2 g/dL (14.0-18.0); Platelet Count 43 10x3/uL (130-400)
[2025-04-12] MEDS: Mupirocin 1 GM TUBE NASAL DECOLONIZATION NASAL SCH (20:47)
[2025-04-13 00:28] LABS: Hematocrit 29.3 % (42.0-52.0); Hemoglobin 9.5 g/dL (14.0-18.0); Platelet Count 48 10x3/uL (130-400)
[2025-04-13 04:46] LABS: #Basophils Less than 0.03 10x3/uL (0.0-0.2); #Eosinophils 0.05 10x3/uL (0.0-0.7); #Monocytes 0.48 10x3/uL (0.11-0.59); #Neutrophils 5.01 10x3/uL (1.40-6.50); %Basophils 0.3 % (0.0-1.0); %Eosinophils 0.8 % (0.0-10.0); %Lymphocytes 4.9 % (21.0-51.0); %Monocytes 8.1 % (0.0-10.0); %Neutrophils 84.7 % (42.0-75.0); Hematocrit 28.2 % (42.0-52.0); Hemoglobin 8.8 g/dL (14.0-18.0); Mean Corpuscular Hemoglobin 29.8 pg (27.0-31.0); Mean Corpuscular Volume 95.6 fL (78.0-98.0); Platelet Count 44 10x3/uL (130-400); Red Blood Cell (RBC) Count 2.95 mill/uL (4.70-6.10); White Blood Cell (WBC) Count 5.92 10x3/uL (4.8-10.8)
[2025-04-13 08:59] LABS: Hematocrit 29.4 % (42.0-52.0); Hemoglobin 9.2 g/dL (14.0-18.0); Platelet Count 47 10x3/uL (130-400)
[2025-04-13 12:09] LABS: Hematocrit 29.2 % (42.0-52.0); Hemoglobin 9.3 g/dL (14.0-18.0); Platelet Count 48 10x3/uL (130-400)
[2025-04-13 18:12] LABS: Hematocrit 27.6 % (42.0-52.0); Hemoglobin 8.6 g/dL (14.0-18.0); Platelet Count 38 10x3/uL (130-400)
[2025-04-13 23:39] LABS: Hematocrit 30.5 % (42.0-52.0); Hemoglobin 9.5 g/dL (14.0-18.0); Platelet Count 48 10x3/uL (130-400)
[2025-04-14 04:36] LABS: Hematocrit 30.9 % (42.0-52.0); Hemoglobin 9.7 g/dL (14.0-18.0); Mean Corpuscular Hemoglobin 30.3 pg (27.0-31.0); Mean Corpuscular Volume 96.6 fL (78.0-98.0); Platelet Count 51 10x3/uL (130-400); Red Blood Cell (RBC) Count 3.20 mill/uL (4.70-6.10); White Blood Cell (WBC) Count 9.06 10x3/uL (4.8-10.8)
[2025-04-14 05:13] LABS: ALT (SGPT) 15 U/L (Less than 45); AST (SGOT) 38 U/L (11-34); Albumin 2.3 g/dL (3.1-4.5); Alkaline Phosphatase 121 U/L (40-110); Anion Gap 20 mmol/L (10-20); BUN (Urea Nitrogen) 33 mg/dL (8.4-25.7); Bilirubin, Total 1.7 mg/dL (0.3-1.2); Burr Cells SLIGHT = 2-5 cells HPF (0-1); Calc. Creatinine Clearance 14 mL/min (70-130); Calcium 9.2 mg/dL (7.8-10.44); Carbon Dioxide 20 mmol/L (22-29); Chloride 102 mmol/L (98-107); Globulin 3.1 g/dL (2.4-3.5); Glucose 175 mg/dL (70-105); Platelet Adequacy Comment Platelets Decreased; Potassium 4.2 mmol/L (3.5-5.1); Smudge Cells 7.0 %; Sodium 138 mmol/L (136-145)
[2025-04-14 08:41] LABS: Hematocrit 28.9 % (42.0-52.0); Hemoglobin 9.1 g/dL (14.0-18.0); Platelet Count 50 10x3/uL (130-400)
[2025-04-14 12:15] LABS: Hematocrit 30.1 % (42.0-52.0); Hemoglobin 9.2 g/dL (14.0-18.0); Platelet Count 61 10x3/uL (130-400)
[2025-04-14 18:51] LABS: Hematocrit 29.8 % (42.0-52.0); Hemoglobin 9.2 g/dL (14.0-18.0); Platelet Count 67 10x3/uL (130-400)
[2025-04-14] MEDS: Norepinephrine 8 MG/0.9% NS 250 ML IVPB SCH (20:34)
[2025-04-15 00:01] LABS: Hematocrit 29.8 % (42.0-52.0); Hemoglobin 9.1 g/dL (14.0-18.0); Platelet Count 79 10x3/uL (130-400)
[2025-04-15 01:48] VITALS: BMI 27.2
[2025-04-15] MEDS: Guaifenesin DM 100-10/5 ML UDCUP PO PRN (02:02)
[2025-04-15 03:43] LABS: #Basophils 0.03 10x3/uL (0.0-0.2); #Eosinophils 0.21 10x3/uL (0.0-0.7); #Monocytes 1.40 10x3/uL (0.11-0.59); #Neutrophils 11.21 10x3/uL (1.40-6.50); %Basophils 0.2 % (0.0-1.0); %Eosinophils 1.6 % (0.0-10.0); %Lymphocytes 3.4 % (21.0-51.0); %Monocytes 10.4 % (0.0-10.0); %Neutrophils 83.7 % (42.0-75.0); Hematocrit 30.0 % (42.0-52.0); Hemoglobin 9.4 g/dL (14.0-18.0); Mean Corpuscular Hemoglobin 30.4 pg (27.0-31.0); Mean Corpuscular Volume 97.1 fL (78.0-98.0); Platelet Count 69 10x3/uL (130-400); Red Blood Cell (RBC) Count 3.09 mill/uL (4.70-6.10); White Blood Cell (WBC) Count 13.41 10x3/uL (4.8-10.8)
[2025-04-15 04:01] LABS: ALT (SGPT) 14 U/L (Less than 45); AST (SGOT) 48 U/L (11-34); Albumin 2.1 g/dL (3.1-4.5); Alkaline Phosphatase 123 U/L (40-110); Anion Gap 21 mmol/L (10-20); BUN (Urea Nitrogen) 42 mg/dL (8.4-25.7); Bilirubin, Total 1.5 mg/dL (0.3-1.2); Calc. Creatinine Clearance 11 mL/min (70-130); Calcium 9.4 mg/dL (7.8-10.44); Carbon Dioxide 19 mmol/L (22-29); Chloride 105 mmol/L (98-107); Globulin 3.4 g/dL (2.4-3.5); Glucose 211 mg/dL (70-105); Potassium 4.1 mmol/L (3.5-5.1); Sodium 141 mmol/L (136-145)
[2025-04-15 06:01] LABS: Hematocrit 27.7 % (42.0-52.0); Hemoglobin 8.7 g/dL (14.0-18.0); Platelet Count 60 10x3/uL (130-400)
[2025-04-15 12:21] LABS: Hematocrit 29.4 % (42.0-52.0); Hemoglobin 9.0 g/dL (14.0-18.0); Platelet Count 48 10x3/uL (130-400)
[2025-04-15 18:46] LABS: Hematocrit 25.7 % (42.0-52.0); Hemoglobin 8.0 g/dL (14.0-18.0); Platelet Count 42 10x3/uL (130-400)
[2025-04-16 02:10] LABS: Hematocrit 26.5 % (42.0-52.0); Hemoglobin 8.1 g/dL (14.0-18.0); Platelet Count 47 10x3/uL (130-400)
[2025-04-16 04:27] LABS: #Basophils Less than 0.03 10x3/uL (0.0-0.2); #Eosinophils 0.10 10x3/uL (0.0-0.7); #Monocytes 0.90 10x3/uL (0.11-0.59); #Neutrophils 6.30 10x3/uL (1.40-6.50); %Basophils 0.3 % (0.0-1.0); %Eosinophils 1.3 % (0.0-10.0); %Lymphocytes 3.8 % (21.0-51.0); %Monocytes 11.7 % (0.0-10.0); %Neutrophils 82.2 % (42.0-75.0); Hematocrit 26.3 % (42.0-52.0); Hemoglobin 8.2 g/dL (14.0-18.0); Mean Corpuscular Hemoglobin 30.7 pg (27.0-31.0); Mean Corpuscular Volume 98.5 fL (78.0-98.0); Platelet Count 45 10x3/uL (130-400); Red Blood Cell (RBC) Count 2.67 mill/uL (4.70-6.10); White Blood Cell (WBC) Count 7.66 10x3/uL (4.8-10.8)
[2025-04-16 04:42] LABS: ALT (SGPT) 13 U/L (Less than 45); AST (SGOT) 34 U/L (11-34); Albumin 2.4 g/dL (3.1-4.5); Alkaline Phosphatase 125 U/L (40-110); Anion Gap 19 mmol/L (10-20); BUN (Urea Nitrogen) 29 mg/dL (8.4-25.7); Bilirubin, Total 1.6 mg/dL (0.3-1.2); Calc. Creatinine Clearance 15 mL/min (70-130); Calcium 9.2 mg/dL (7.8-10.44); Carbon Dioxide 23 mmol/L (22-29); Chloride 102 mmol/L (98-107); Globulin 2.9 g/dL (2.4-3.5); Glucose 206 mg/dL (70-105); Potassium 3.8 mmol/L (3.5-5.1); Sodium 140 mmol/L (136-145)
[2025-04-16 08:49] LABS: Hematocrit 26.7 % (42.0-52.0); Hemoglobin 8.1 g/dL (14.0-18.0); Platelet Count 44 10x3/uL (130-400)
[2025-04-16 14:30] LABS: Hematocrit 28.3 % (42.0-52.0); Hemoglobin 8.5 g/dL (14.0-18.0); Platelet Count 50 10x3/uL (130-400)
[2025-04-16 19:30] LABS: Hematocrit 30.1 % (42.0-52.0); Hemoglobin 9.0 g/dL (14.0-18.0); Platelet Count 45 10x3/uL (130-400)
[2025-04-17 00:58] LABS: Hematocrit 29.4 % (42.0-52.0); Hemoglobin 8.9 g/dL (14.0-18.0); Platelet Count 55 10x3/uL (130-400)
[2025-04-17 03:39] LABS: #Basophils Less than 0.03 10x3/uL (0.0-0.2); #Eosinophils 0.11 10x3/uL (0.0-0.7); #Monocytes 0.54 10x3/uL (0.11-0.59); #Neutrophils 4.52 10x3/uL (1.40-6.50); %Basophils 0.4 % (0.0-1.0); %Eosinophils 2.0 % (0.0-10.0); %Lymphocytes 4.7 % (21.0-51.0); %Monocytes 9.8 % (0.0-10.0); %Neutrophils 82.4 % (42.0-75.0); Hematocrit 26.9 % (42.0-52.0); Hemoglobin 8.4 g/dL (14.0-18.0); Mean Corpuscular Hemoglobin 30.5 pg (27.0-31.0); Mean Corpuscular Volume 97.8 fL (78.0-98.0); Platelet Count 43 10x3/uL (130-400); Red Blood Cell (RBC) Count 2.75 mill/uL (4.70-6.10); White Blood Cell (WBC) Count 5.49 10x3/uL (4.8-10.8)
[2025-04-17 03:52] LABS: ALT (SGPT) 13 U/L (Less than 45); AST (SGOT) 38 U/L (11-34); Albumin 2.3 g/dL (3.1-4.5); Alkaline Phosphatase 131 U/L (40-110); Anion Gap 24 mmol/L (10-20); BUN (Urea Nitrogen) 40 mg/dL (8.4-25.7); Bilirubin, Total 1.3 mg/dL (0.3-1.2); Calc. Creatinine Clearance 12 mL/min (70-130); Calcium 9.4 mg/dL (7.8-10.44); Carbon Dioxide 18 mmol/L (22-29); Chloride 104 mmol/L (98-107); Globulin 3.3 g/dL (2.4-3.5); Glucose 219 mg/dL (70-105); Magnesium 2.1 mg/dL (1.6-2.6); Potassium 3.9 mmol/L (3.5-5.1); Sodium 142 mmol/L (136-145)
[2025-04-17 08:07] LABS: Hematocrit 29.1 % (42.0-52.0); Hemoglobin 9.0 g/dL (14.0-18.0); Platelet Count 46 10x3/uL (130-400)
[2025-04-17 12:23] LABS: Hematocrit 26.7 % (42.0-52.0); Hemoglobin 8.0 g/dL (14.0-18.0); Platelet Count 44 10x3/uL (130-400)
[2025-04-17 20:08] LABS: Hematocrit 25.8 % (42.0-52.0); Hemoglobin 7.8 g/dL (14.0-18.0); Platelet Count 40 10x3/uL (130-400)
[2025-04-17 23:49] LABS: Hematocrit 26.2 % (42.0-52.0); Hemoglobin 8.0 g/dL (14.0-18.0); Platelet Count 38 10x3/uL (130-400)
[2025-04-18 07:18] LABS: #Basophils 0.03 10x3/uL (0.0-0.2); #Eosinophils 0.10 10x3/uL (0.0-0.7); #Monocytes 0.42 10x3/uL (0.11-0.59); #Neutrophils 3.20 10x3/uL (1.40-6.50); %Basophils 0.7 % (0.0-1.0); %Eosinophils 2.5 % (0.0-10.0); %Lymphocytes 6.4 % (21.0-51.0); %Monocytes 10.4 % (0.0-10.0); %Neutrophils 79.3 % (42.0-75.0); Hematocrit 25.6 % (42.0-52.0); Hemoglobin 7.6 g/dL (14.0-18.0); Mean Corpuscular Hemoglobin 29.9 pg (27.0-31.0); Mean Corpuscular Volume 100.8 fL (78.0-98.0); Platelet Count 36 10x3/uL (130-400); Red Blood Cell (RBC) Count 2.54 mill/uL (4.70-6.10); White Blood Cell (WBC) Count 4.04 10x3/uL (4.8-10.8)
[2025-04-18 07:23] LABS: ALT (SGPT) 13 U/L (Less than 45); AST (SGOT) 40 U/L (11-34); Albumin 2.3 g/dL (3.1-4.5); Alkaline Phosphatase 143 U/L (40-110); Anion Gap 19 mmol/L (10-20); BUN (Urea Nitrogen) 52 mg/dL (8.4-25.7); Bilirubin, Total 1.1 mg/dL (0.3-1.2); Calc. Creatinine Clearance 9 mL/min (70-130); Calcium 9.1 mg/dL (7.8-10.44); Carbon Dioxide 20 mmol/L (22-29); Chloride 107 mmol/L (98-107); Globulin 3.4 g/dL (2.4-3.5); Glucose 204 mg/dL (70-105); Magnesium 2.1 mg/dL (1.6-2.6); Potassium 3.4 mmol/L (3.5-5.1); Sodium 143 mmol/L (136-145)
[2025-04-18 13:02] LABS: Hematocrit 27.6 % (42.0-52.0); Hemoglobin 8.3 g/dL (14.0-18.0); Platelet Count 38 10x3/uL (130-400)
[2025-04-18 21:09] LABS: Hematocrit 25.9 % (42.0-52.0); Hemoglobin 8.0 g/dL (14.0-18.0); Platelet Count 44 10x3/uL (130-400)
[2025-04-18 23:00] LABS: ALT (SGPT) 17 U/L (Less than 45); AST (SGOT) 49 U/L (11-34); Albumin 2.5 g/dL (3.1-4.5); Alkaline Phosphatase 167 U/L (40-110); Anion Gap 20 mmol/L (10-20); BUN (Urea Nitrogen) 25 mg/dL (8.4-25.7); Bilirubin, Total 1.2 mg/dL (0.3-1.2); Calc. Creatinine Clearance 18 mL/min (70-130); Calcium 8.7 mg/dL (7.8-10.44); Carbon Dioxide 24 mmol/L (22-29); Chloride 100 mmol/L (98-107); Globulin 3.7 g/dL (2.4-3.5); Glucose 184 mg/dL (70-105); Potassium 3.5 mmol/L (3.5-5.1); Sodium 140 mmol/L (136-145)
[2025-04-19 01:02] LABS: Hematocrit 27.3 % (42.0-52.0); Hemoglobin 8.1 g/dL (14.0-18.0); Platelet Count 37 10x3/uL (130-400)
[2025-04-19 04:42] LABS: ALT (SGPT) 14 U/L (Less than 45); AST (SGOT) 47 U/L (11-34); Albumin 2.5 g/dL (3.1-4.5); Alkaline Phosphatase 166 U/L (40-110); Anion Gap 22 mmol/L (10-20); BUN (Urea Nitrogen) 29 mg/dL (8.4-25.7); Bilirubin, Total 1.3 mg/dL (0.3-1.2); Calc. Creatinine Clearance 15 mL/min (70-130); Calcium 9.1 mg/dL (7.8-10.44); Carbon Dioxide 22 mmol/L (22-29); Chloride 101 mmol/L (98-107); Globulin 3.7 g/dL (2.4-3.5); Glucose 203 mg/dL (70-105); Magnesium 2.0 mg/dL (1.6-2.6); Potassium 3.7 mmol/L (3.5-5.1); Sodium 141 mmol/L (136-145)
[2025-04-19 05:11] LABS: #Basophils Less than 0.03 10x3/uL (0.0-0.2); #Eosinophils 0.10 10x3/uL (0.0-0.7); #Monocytes 0.38 10x3/uL (0.11-0.59); #Neutrophils 4.30 10x3/uL (1.40-6.50); %Basophils 0.4 % (0.0-1.0); %Eosinophils 1.9 % (0.0-10.0); %Lymphocytes 6.0 % (21.0-51.0); %Monocytes 7.3 % (0.0-10.0); %Neutrophils 83.0 % (42.0-75.0); Hematocrit 27.9 % (42.0-52.0); Hemoglobin 8.5 g/dL (14.0-18.0); Mean Corpuscular Hemoglobin 30.8 pg (27.0-31.0); Mean Corpuscular Volume 101.1 fL (78.0-98.0); Platelet Count 38 10x3/uL (130-400); Red Blood Cell (RBC) Count 2.76 mill/uL (4.70-6.10); White Blood Cell (WBC) Count 5.18 10x3/uL (4.8-10.8)
[2025-04-19 06:16] LABS: Macrocytosis SLIGHT = 6-15 cells HPF (0-5); Platelet Adequacy Comment Significant Decrease
[2025-04-19 13:28] LABS: Hematocrit 28.9 % (42.0-52.0); Hemoglobin 8.8 g/dL (14.0-18.0); Platelet Count 36 10x3/uL (130-400)
[2025-04-19 18:37] LABS: Hematocrit 29.4 % (42.0-52.0); Hemoglobin 8.9 g/dL (14.0-18.0); Platelet Count 41 10x3/uL (130-400)
[2025-04-20 00:24] LABS: Hematocrit 27.4 % (42.0-52.0); Hemoglobin 8.3 g/dL (14.0-18.0); Platelet Count 40 10x3/uL (130-400)
[2025-04-20 04:44] LABS: #Basophils Less than 0.03 10x3/uL (0.0-0.2); #Eosinophils 0.11 10x3/uL (0.0-0.7); #Monocytes 0.35 10x3/uL (0.11-0.59); #Neutrophils 2.65 10x3/uL (1.40-6.50); %Basophils 0.6 % (0.0-1.0); %Eosinophils 3.2 % (0.0-10.0); %Lymphocytes 8.1 % (21.0-51.0); %Monocytes 10.2 % (0.0-10.0); %Neutrophils 77.0 % (42.0-75.0); Hematocrit 25.8 % (42.0-52.0); Hemoglobin 7.9 g/dL (14.0-18.0); Mean Corpuscular Hemoglobin 30.9 pg (27.0-31.0); Mean Corpuscular Volume 100.8 fL (78.0-98.0); Platelet Count 41 10x3/uL (130-400); Red Blood Cell (RBC) Count 2.56 mill/uL (4.70-6.10); White Blood Cell (WBC) Count 3.44 10x3/uL (4.8-10.8)
[2025-04-20 04:53] LABS: INR-International Normal Ratio 1.4; Prothrombin Time 17.5 sec (12.0-14.7)
[2025-04-20 11:46] LABS: Hematocrit 27.9 % (42.0-52.0); Hemoglobin 8.4 g/dL (14.0-18.0); Platelet Count 36 10x3/uL (130-400)
[2025-04-21 04:56] LABS: #Basophils 0.03 10x3/uL (0.0-0.2); #Eosinophils 0.14 10x3/uL (0.0-0.7); #Monocytes 0.22 10x3/uL (0.11-0.59); #Neutrophils 1.87 10x3/uL (1.40-6.50); %Basophils 1.2 % (0.0-1.0); %Eosinophils 5.6 % (0.0-10.0); %Lymphocytes 9.5 % (21.0-51.0); %Monocytes 8.7 % (0.0-10.0); %Neutrophils 74.2 % (42.0-75.0); Hematocrit 28.4 % (42.0-52.0); Hemoglobin 8.5 g/dL (14.0-18.0); Mean Corpuscular Hemoglobin 31.3 pg (27.0-31.0); Mean Corpuscular Volume 104.4 fL (78.0-98.0); Platelet Count 32 10x3/uL (130-400); Red Blood Cell (RBC) Count 2.72 mill/uL (4.70-6.10); White Blood Cell (WBC) Count 2.52 10x3/uL (4.8-10.8)
[2025-04-21 05:14] LABS: Albumin 2.4 g/dL (3.1-4.5); Anion Gap 18 mmol/L (10-20); BUN (Urea Nitrogen) 51 mg/dL (8.4-25.7); BUN/Creatinine Ratio 5.53; Calc. Creatinine Clearance 9 mL/min (70-130); Calcium 9.4 mg/dL (7.8-10.44); Carbon Dioxide 24 mmol/L (22-29); Chloride 107 mmol/L (98-107); Glucose 190 mg/dL (70-105); Potassium 3.4 mmol/L (3.5-5.1); Sodium 146 mmol/L (136-145)
[2025-04-22 04:11] LABS: Albumin 2.5 g/dL (3.1-4.5); Anion Gap 13 mmol/L (10-20); BUN (Urea Nitrogen) 25 mg/dL (8.4-25.7); BUN/Creatinine Ratio 4.60; Calc. Creatinine Clearance 16 mL/min (70-130); Calcium 9.0 mg/dL (7.8-10.44); Carbon Dioxide 25 mmol/L (22-29); Chloride 101 mmol/L (98-107); Glucose 128 mg/dL (70-105); Potassium 4.0 mmol/L (3.5-5.1); Sodium 135 mmol/L (136-145)
[2025-04-22 04:23] LABS: #Basophils Less than 0.03 10x3/uL (0.0-0.2); #Eosinophils 0.09 10x3/uL (0.0-0.7); #Monocytes 0.27 10x3/uL (0.11-0.59); #Neutrophils 2.08 10x3/uL (1.40-6.50); %Basophils 0.7 % (0.0-1.0); %Eosinophils 3.2 % (0.0-10.0); %Lymphocytes 11.7 % (21.0-51.0); %Monocytes 9.6 % (0.0-10.0); %Neutrophils 74.1 % (42.0-75.0); Hematocrit 27.9 % (42.0-52.0); Hemoglobin 8.7 g/dL (14.0-18.0); Mean Corpuscular Hemoglobin 31.9 pg (27.0-31.0); Mean Corpuscular Volume 102.2 fL (78.0-98.0); Platelet Count 43 10x3/uL (130-400); Red Blood Cell (RBC) Count 2.73 mill/uL (4.70-6.10); White Blood Cell (WBC) Count 2.81 10x3/uL (4.8-10.8)
[2025-04-23 04:10] LABS: #Basophils 0.03 10x3/uL (0.0-0.2); #Eosinophils 0.09 10x3/uL (0.0-0.7); #Monocytes 0.32 10x3/uL (0.11-0.59); #Neutrophils 1.92 10x3/uL (1.40-6.50); %Basophils 1.1 % (0.0-1.0); %Eosinophils 3.4 % (0.0-10.0); %Lymphocytes 9.2 % (21.0-51.0); %Monocytes 12.3 % (0.0-10.0); %Neutrophils 73.6 % (42.0-75.0); Hematocrit 28.7 % (42.0-52.0); Hemoglobin 8.7 g/dL (14.0-18.0); Mean Corpuscular Hemoglobin 31.4 pg (27.0-31.0); Mean Corpuscular Volume 103.6 fL (78.0-98.0); Platelet Count 49 10x3/uL (130-400); Red Blood Cell (RBC) Count 2.77 mill/uL (4.70-6.10); White Blood Cell (WBC) Count 2.61 10x3/uL (4.8-10.8)
[2025-04-23 04:38] LABS: Albumin 2.5 g/dL (3.1-4.5); Anion Gap 10 mmol/L (10-20); BUN (Urea Nitrogen) 29 mg/dL (8.4-25.7); BUN/Creatinine Ratio 4.14; Calc. Creatinine Clearance 12 mL/min (70-130); Calcium 9.0 mg/dL (7.8-10.44); Carbon Dioxide 25 mmol/L (22-29); Chloride 103 mmol/L (98-107); Glucose 199 mg/dL (70-105); Potassium 3.9 mmol/L (3.5-5.1); Sodium 134 mmol/L (136-145)
[2025-04-24] MEDS: levETIRAcetam 500 MG (5 mL) VIAL SLOW IVP SCH ×2 (10:50→21:43)
[2025-04-24 10:57] LABS: #Basophils 0.03 10x3/uL (0.0-0.2); #Eosinophils 0.08 10x3/uL (0.0-0.7); #Monocytes 0.27 10x3/uL (0.11-0.59); #Neutrophils 1.94 10x3/uL (1.40-6.50); %Basophils 1.2 % (0.0-1.0); %Eosinophils 3.2 % (0.0-10.0); %Lymphocytes 7.6 % (21.0-51.0); %Monocytes 10.8 % (0.0-10.0); %Neutrophils 77.2 % (42.0-75.0); Hematocrit 26.8 % (42.0-52.0); Hemoglobin 7.9 g/dL (14.0-18.0); Mean Corpuscular Hemoglobin 31.6 pg (27.0-31.0); Mean Corpuscular Volume 107.2 fL (78.0-98.0); Platelet Count 41 10x3/uL (130-400); Red Blood Cell (RBC) Count 2.50 mill/uL (4.70-6.10); White Blood Cell (WBC) Count 2.51 10x3/uL (4.8-10.8)
[2025-04-24 11:05] LABS: INR-International Normal Ratio 1.5; Prothrombin Time 18.0 sec (12.0-14.7)
[2025-04-24 11:06] LABS: PTT 35.4 sec (22.9-36.1)
[2025-04-24 11:10] LABS: ALT (SGPT) 13 U/L (Less than 45); AST (SGOT) 32 U/L (11-34); Albumin 2.5 g/dL (3.1-4.5); Alkaline Phosphatase 164 U/L (40-110); Anion Gap 16 mmol/L (10-20); BUN (Urea Nitrogen) 21 mg/dL (8.4-25.7); Bilirubin, Total 1.3 mg/dL (0.3-1.2); Calc. Creatinine Clearance 14 mL/min (70-130); Calcium 8.8 mg/dL (7.8-10.44); Carbon Dioxide 25 mmol/L (22-29); Chloride 103 mmol/L (98-107); Globulin 4.0 g/dL (2.4-3.5); Glucose 230 mg/dL (70-105); Magnesium 2.3 mg/dL (1.6-2.6); Potassium 4.5 mmol/L (3.5-5.1); Sodium 139 mmol/L (136-145)
[2025-04-24] MEDS: Lactulose 20 GM (30 mL) UDCUP PO SCH (21:43)
[2025-04-25 08:46] LABS: ALT (SGPT) 13 U/L (Less than 45); AST (SGOT) 33 U/L (11-34); Albumin 2.7 g/dL (3.1-4.5); Alkaline Phosphatase 179 U/L (40-110); Anion Gap 18 mmol/L (10-20); BUN (Urea Nitrogen) 31 mg/dL (8.4-25.7); Bilirubin, Total 1.3 mg/dL (0.3-1.2); Calc. Creatinine Clearance 11 mL/min (70-130); Calcium 9.2 mg/dL (7.8-10.44); Carbon Dioxide 22 mmol/L (22-29); Chloride 103 mmol/L (98-107); Globulin 4.4 g/dL (2.4-3.5); Glucose 180 mg/dL (70-105); Potassium 4.7 mmol/L (3.5-5.1); Sodium 138 mmol/L (136-145)
[2025-04-25 08:48] LABS: #Basophils 0.05 10x3/uL (0.0-0.2); #Eosinophils 0.14 10x3/uL (0.0-0.7); #Monocytes 0.36 10x3/uL (0.11-0.59); #Neutrophils 2.43 10x3/uL (1.40-6.50); %Basophils 1.5 % (0.0-1.0); %Eosinophils 4.3 % (0.0-10.0); %Lymphocytes 7.7 % (21.0-51.0); %Monocytes 11.1 % (0.0-10.0); %Neutrophils 74.8 % (42.0-75.0); Hematocrit 31.0 % (42.0-52.0); Hemoglobin 9.3 g/dL (14.0-18.0); Mean Corpuscular Hemoglobin 32.0 pg (27.0-31.0); Mean Corpuscular Volume 106.5 fL (78.0-98.0); Platelet Count 44 10x3/uL (130-400); Red Blood Cell (RBC) Count 2.91 mill/uL (4.70-6.10); White Blood Cell (WBC) Count 3.25 10x3/uL (4.8-10.8)
[2025-04-25] MEDS ORDERED: levETIRAcetam 500 MG TAB PO SCH (09:30)
[2025-04-25 09:36] LABS: Anisocytosis MODERATE=16-30 cells HPF (0-5); Burr Cells SLIGHT = 2-5 cells HPF (0-1); Macrocytosis SLIGHT = 6-15 cells HPF (0-5); Platelet Adequacy Comment Platelets Decreased; Polychromasia SLIGHT = 2-3 cells HPF (0-2)
[2025-04-25] MEDS: Pantoprazole 40 MG DR.TAB PO SCH (21:19)
[2025-04-25] MEDS: levETIRAcetam 500 MG TAB PO SCH (21:19)
[2025-04-26] MEDS: glipiZIDE 5 MG TAB PO SCH (09:55)
[2025-04-27 04:01] LABS: #Basophils 0.04 10x3/uL (0.0-0.2); #Eosinophils 0.13 10x3/uL (0.0-0.7); #Monocytes 0.39 10x3/uL (0.11-0.59); #Neutrophils 2.05 10x3/uL (1.40-6.50); %Basophils 1.4 % (0.0-1.0); %Eosinophils 4.4 % (0.0-10.0); %Lymphocytes 10.6 % (21.0-51.0); %Monocytes 13.3 % (0.0-10.0); %Neutrophils 70.0 % (42.0-75.0); Hematocrit 27.3 % (42.0-52.0); Hemoglobin 8.4 g/dL (14.0-18.0); Mean Corpuscular Hemoglobin 32.2 pg (27.0-31.0); Mean Corpuscular Volume 104.6 fL (78.0-98.0); Platelet Count 38 10x3/uL (130-400); Red Blood Cell (RBC) Count 2.61 mill/uL (4.70-6.10); White Blood Cell (WBC) Count 2.93 10x3/uL (4.8-10.8)
[2025-04-27 04:10] LABS: Anion Gap 18 mmol/L (10-20); BUN (Urea Nitrogen) 34 mg/dL (8.4-25.7); Calc. Creatinine Clearance 11 mL/min (70-130); Calcium 8.6 mg/dL (7.8-10.44); Carbon Dioxide 23 mmol/L (22-29); Chloride 98 mmol/L (98-107); Glucose 209 mg/dL (70-105); Potassium 5.2 mmol/L (3.5-5.1); Sodium 134 mmol/L (136-145)
[2025-04-27] MEDS: glipiZIDE 5 MG TAB PO SCH (06:42)
[2025-04-27] MEDS: Folic Acid/Vit B Comp W-C PO SCH (08:30)
[2025-04-27] MEDS: Cholecalciferol 1,000 UNITS (25 MCG) TAB PO SCH (08:30)
[2025-04-27] MEDS: Thiamine 100 MG TAB PO SCH (08:30)
[2025-04-27 14:13] VITALS: BMI 22.4
[2025-04-27 15:42] VITALS: BP 110/61; TEMP 97.5
== END 2025-04-28 00:15 | DRG 432 ==
LOC: ERS 10:43 → ERHOLD 12:49 → CCU 15:55 → PCU 04-16 14:19
PROVIDERS: ADMIT Family Medicine; ATTEND Family Medicine
PROC: 0W3P8ZZ Control Bleeding in Gastrointestinal Tract, Via Natural or Artificial Opening Endoscopic (ICD-10-PCS; principal; 2025-04-06)
PROC: 06L28CZ Occlusion of Gastric Vein with Extraluminal Device, Via Natural or Artificial Opening Endoscopic (ICD-10-PCS; 2025-04-06)
PROC: 5A1955Z Respiratory Ventilation, Greater than 96 Consecutive Hours (ICD-10-PCS; 2025-04-06)
PROC: 0BH17EZ Insertion of Endotracheal Airway into Trachea, Via Natural or Artificial Opening (ICD-10-PCS; 2025-04-06)
PROC: 5A1D70Z Performance of Urinary Filtration, Intermittent, Less than 6 Hours Per Day (ICD-10-PCS; 2025-04-06)
PROC: 30233J1 Transfusion of Nonautologous Serum Albumin into Peripheral Vein, Percutaneous Approach (ICD-10-PCS; 2025-04-08)
PROC: 04HY32Z Insertion of Monitoring Device into Lower Artery, Percutaneous Approach (ICD-10-PCS; 2025-04-11)
PROC: 4A133B1 Monitoring of Arterial Pressure, Peripheral, Percutaneous Approach (ICD-10-PCS; 2025-04-11)
PROC: 4A133J1 Monitoring of Arterial Pulse, Peripheral, Percutaneous Approach (ICD-10-PCS; 2025-04-11)
PROC: 30233N1 Transfusion of Nonautologous Red Blood Cells into Peripheral Vein, Percutaneous Approach (ICD-10-PCS; 2025-04-11)
PROC: 30233L1 Transfusion of Nonautologous Fresh Plasma into Peripheral Vein, Percutaneous Approach (ICD-10-PCS; 2025-04-11)
PROC: 30233K1 Transfusion of Nonautologous Frozen Plasma into Peripheral Vein, Percutaneous Approach (ICD-10-PCS; 2025-04-11)
PROC: 06L28CZ Occlusion of Gastric Vein with Extraluminal Device, Via Natural or Artificial Opening Endoscopic (ICD-10-PCS; 2025-04-12)
PROC: 05HM33Z Insertion of Infusion Device into Right Internal Jugular Vein, Percutaneous Approach (ICD-10-PCS; 2025-04-14)
PROC: 0DH67UZ Insertion of Feeding Device into Stomach, Via Natural or Artificial Opening (ICD-10-PCS; 2025-04-16)
PROC: 05HY33Z Insertion of Infusion Device into Upper Vein, Percutaneous Approach (ICD-10-PCS; 2025-04-18)
PROC: 3E04329 Introduction of Other Anti-infective into Central Vein, Percutaneous Approach (ICD-10-PCS; 2025-04-18)
PROC: 4A10X4Z Monitoring of Central Nervous Electrical Activity, External Approach (ICD-10-PCS; 2025-04-25)
DX: K70.30 Alcoholic cirrhosis of liver without ascites (principal); G93.41 Metabolic encephalopathy; N18.6 End stage renal disease; J96.01 Acute respiratory failure with hypoxia; I85.11 Secondary esophageal varices with bleeding; I63.9 Cerebral infarction, unspecified; R57.8 Other shock; K76.6 Portal hypertension; K92.2 Gastrointestinal hemorrhage, unspecified; I12.0 Hypertensive chronic kidney disease with stage 5 chronic kidney disease or end stage renal disease; I48.92 Unspecified atrial flutter; D62 Acute posthemorrhagic anemia; E87.1 Hypo-osmolality and hyponatremia; Z51.5 Encounter for palliative care; E87.20 Acidosis, unspecified; D61.818 Other pancytopenia; K76.82 Hepatic encephalopathy; E11.22 Type 2 diabetes mellitus with diabetic chronic kidney disease; Z99.2 Dependence on renal dialysis; E88.09 Other disorders of plasma-protein metabolism, not elsewhere classified; Z88.8 Allergy status to other drugs, medicaments and biological substances; K31.89 Other diseases of stomach and duodenum; E11.65 Type 2 diabetes mellitus with hyperglycemia; D63.1 Anemia in chronic kidney disease; I95.9 Hypotension, unspecified; R13.10 Dysphagia, unspecified; F10.10 Alcohol abuse, uncomplicated
CPT/HCPCS: 36000; 36415; 36416; 36430; 36600; 49083; 70450; 70496; 70498; 70551; 71045; 71260; 72125; 74018; 74177; 76937; 80048; 80053; 80069; 80307; 82042; 82140; 82150; 82805; 82945; 83605; 83615; 83735; 83880; 84100; 84157; 84484; 85014; 85018; 85025; 85049; 85060; 85384; 85610; 85730; 86850; 86900; 86901; 87070; 87205; 89051; 89060; 90935; 93005; 94002; 94003; 95700; 95711; 95957; 96365; 96366; 96368; 96375; 97139; 99292; G0257; J0613; J0696; J1630; J1815; J1953; J2060; J2250; J2354; J2470; J2704; J3411; J3430; J7030; J7050; J7070; J7999; P9016; P9035; P9045; P9047; P9059; Q5105; Q9967

== ENCOUNTER 2025-05-02 13:48 | Inpatient (IN) | payer MEDICARE, BC ==
[2025-05-02 15:20] LABS: #Basophils Less than 0.03 10x3/uL (0.0-0.2); #Eosinophils 0.11 10x3/uL (0.0-0.7); #Monocytes 0.23 10x3/uL (0.11-0.59); #Neutrophils 1.50 10x3/uL (1.40-6.50); %Basophils 0.9 % (0.0-1.0); %Eosinophils 5.1 % (0.0-10.0); %Lymphocytes 13.5 % (21.0-51.0); %Monocytes 10.7 % (0.0-10.0); %Neutrophils 69.8 % (42.0-75.0); Hematocrit 19.7 % (42.0-52.0); Hemoglobin 6.0 g/dL (14.0-18.0); Mean Corpuscular Hemoglobin 32.1 pg (27.0-31.0); Mean Corpuscular Volume 105.3 fL (78.0-98.0); Platelet Count 39 10x3/uL (130-400); Red Blood Cell (RBC) Count 1.87 mill/uL (4.70-6.10); White Blood Cell (WBC) Count 2.15 10x3/uL (4.8-10.8)
[2025-05-02 15:31] LABS: ALT (SGPT) 32 U/L (Less than 45); AST (SGOT) 82 U/L (11-34); Albumin 2.4 g/dL (3.1-4.5); Alkaline Phosphatase 222 U/L (40-110); Anion Gap 16 mmol/L (10-20); BUN (Urea Nitrogen) 42 mg/dL (8.4-25.7); Bilirubin, Total 0.7 mg/dL (0.3-1.2); Calc. Creatinine Clearance 0 mL/min (70-130); Calcium 8.8 mg/dL (7.8-10.44); Carbon Dioxide 28 mmol/L (22-29); Chloride 97 mmol/L (98-107); Globulin 4.3 g/dL (2.4-3.5); Glucose 228 mg/dL (70-105); Potassium 4.7 mmol/L (3.5-5.1); Sodium 136 mmol/L (136-145)
[2025-05-02] MEDS ORDERED: Lactulose 20 GM (30 mL) UDCUP ONE (20:41)
[2025-05-02] MEDS ORDERED: levETIRAcetam 500 MG TAB ONE (20:41)
[2025-05-02] MEDS: Lactulose 20 GM (30 mL) UDCUP PO SCH (20:54)
[2025-05-02] MEDS: levETIRAcetam 500 MG TAB PO SCH (20:54)
[2025-05-02] MEDS: Rifaximin 550 MG TAB PO SCH (20:59)
[2025-05-02 22:03] VITALS: BMI 26.2
[2025-05-02] MEDS ORDERED: Glucagon 1 MG/ML KIT IM PRN (22:57)
[2025-05-02] MEDS ORDERED: Dextrose 50% Abboject 50 ML SYRINGE SLOW IVP PRN (22:57)
[2025-05-03 05:44] LABS: Hematocrit 23.6 % (42.0-52.0); Hemoglobin 7.7 g/dL (14.0-18.0); Mean Corpuscular Hemoglobin 32.2 pg (27.0-31.0); Mean Corpuscular Volume 98.7 fL (78.0-98.0); Platelet Count 36 10x3/uL (130-400); Red Blood Cell (RBC) Count 2.39 mill/uL (4.70-6.10); White Blood Cell (WBC) Count 1.92 10x3/uL (4.8-10.8)
[2025-05-03 06:11] LABS: Anisocytosis SLIGHT = 6-15 cells HPF (0-5); Platelet Adequacy Comment Platelets Decreased; Polychromasia SLIGHT = 2-3 cells HPF (0-2)
[2025-05-03] MEDS ORDERED: Pantoprazole 40 MG DR.TAB PO SCH (09:00)
[2025-05-03 10:32] LABS: INR-International Normal Ratio 1.3; Prothrombin Time 16.8 sec (12.0-14.7)
[2025-05-03 10:33] LABS: PTT 34.8 sec (22.9-36.1)
[2025-05-03] MEDS ORDERED: Glucagon 1 MG/ML KIT IM PRN (13:05)
[2025-05-03] MEDS ORDERED: Dextrose 50% Abboject 50 ML SYRINGE SLOW IVP PRN (13:05)
[2025-05-03] MEDS: Cholecalciferol 1,000 UNITS (25 MCG) TAB PO SCH (13:39)
[2025-05-03] MEDS: Thiamine 100 MG TAB PO SCH (13:40)
[2025-05-03] MEDS: Folic Acid/Vit B Comp W-C PO SCH (13:40)
[2025-05-03] MEDS: Octreotide Acetate 1,250 MCG in Sodium Chloride 0.9% 250 ML 250 ML IVPB SCH (13:41)
[2025-05-03 14:56] VITALS: BMI 26.2
[2025-05-03] MEDS: EPOETIN ALFA-EPBX (ESRD) 10,000 UNITS/ML VIAL SC SCH (15:13)
[2025-05-03] MEDS: Pantoprazole 40 MG VIAL IVP SCH (20:28)
[2025-05-04] MEDS: diphenhydrAMINE 25 MG CAP PO SCH (01:01)
[2025-05-04 06:08] LABS: Albumin 2.1 g/dL (3.1-4.5); Anion Gap 17 mmol/L (10-20); BUN (Urea Nitrogen) 36 mg/dL (8.4-25.7); BUN/Creatinine Ratio 8.05; Calc. Creatinine Clearance 19 mL/min (70-130); Calcium 8.4 mg/dL (7.8-10.44); Carbon Dioxide 27 mmol/L (22-29); Chloride 100 mmol/L (98-107); Glucose 212 mg/dL (70-105); Potassium 4.9 mmol/L (3.5-5.1); Sodium 139 mmol/L (136-145)
[2025-05-04 06:22] LABS: #Basophils 0.04 10x3/uL (0.0-0.2); #Eosinophils 0.12 10x3/uL (0.0-0.7); #Monocytes 0.34 10x3/uL (0.11-0.59); #Neutrophils 1.36 10x3/uL (1.40-6.50); %Basophils 1.8 % (0.0-1.0); %Eosinophils 5.4 % (0.0-10.0); %Lymphocytes 15.8 % (21.0-51.0); %Monocytes 15.3 % (0.0-10.0); %Neutrophils 61.2 % (42.0-75.0); Hematocrit 23.4 % (42.0-52.0); Hemoglobin 7.3 g/dL (14.0-18.0); Mean Corpuscular Hemoglobin 31.9 pg (27.0-31.0); Mean Corpuscular Volume 102.2 fL (78.0-98.0); Platelet Count 37 10x3/uL (130-400); Red Blood Cell (RBC) Count 2.29 mill/uL (4.70-6.10); White Blood Cell (WBC) Count 2.22 10x3/uL (4.8-10.8)
[2025-05-04] MEDS: cefTRIAXone\\ROCEPHIN 1 GM in Sodium Chloride 0.9% 100 ML IVPB SCH (13:22)
[2025-05-05] MEDS: diphenhydrAMINE 25 MG CAP PO SCH (01:46)
[2025-05-05 06:19] LABS: #Basophils 0.05 10x3/uL (0.0-0.2); #Eosinophils 0.13 10x3/uL (0.0-0.7); #Monocytes 0.20 10x3/uL (0.11-0.59); #Neutrophils 1.35 10x3/uL (1.40-6.50); %Basophils 2.5 % (0.0-1.0); %Eosinophils 6.4 % (0.0-10.0); %Lymphocytes 14.8 % (21.0-51.0); %Monocytes 9.9 % (0.0-10.0); %Neutrophils 66.4 % (42.0-75.0); Hematocrit 23.2 % (42.0-52.0); Hemoglobin 7.2 g/dL (14.0-18.0); Mean Corpuscular Hemoglobin 32.0 pg (27.0-31.0); Mean Corpuscular Volume 103.1 fL (78.0-98.0); Platelet Count 41 10x3/uL (130-400); Red Blood Cell (RBC) Count 2.25 mill/uL (4.70-6.10); White Blood Cell (WBC) Count 2.03 10x3/uL (4.8-10.8)
[2025-05-05 06:24] LABS: Albumin 2.2 g/dL (3.1-4.5); Anion Gap 17 mmol/L (10-20); BUN (Urea Nitrogen) 49 mg/dL (8.4-25.7); BUN/Creatinine Ratio 7.52; Calc. Creatinine Clearance 13 mL/min (70-130); Calcium 8.4 mg/dL (7.8-10.44); Carbon Dioxide 24 mmol/L (22-29); Chloride 102 mmol/L (98-107); Glucose 218 mg/dL (70-105); Potassium 5.5 mmol/L (3.5-5.1); Sodium 137 mmol/L (136-145)
[2025-05-05] MEDS: Sodium Ferric Gluconate 250 MG in Sodium Chloride 0.9% 250 ML 250 ML IVPB SCH (13:41)
[2025-05-06 06:43] LABS: Hematocrit 21.9 % (42.0-52.0); Hemoglobin 6.8 g/dL (14.0-18.0); Mean Corpuscular Hemoglobin 32.2 pg (27.0-31.0); Mean Corpuscular Volume 103.8 fL (78.0-98.0); Platelet Count 40 10x3/uL (130-400); Red Blood Cell (RBC) Count 2.11 mill/uL (4.70-6.10); White Blood Cell (WBC) Count 1.91 10x3/uL (4.8-10.8)
[2025-05-06 06:50] LABS: Albumin 2.0 g/dL (3.1-4.5); Anion Gap 14 mmol/L (10-20); BUN (Urea Nitrogen) 34 mg/dL (8.4-25.7); BUN/Creatinine Ratio 6.80; Calc. Creatinine Clearance 17 mL/min (70-130); Calcium 8.2 mg/dL (7.8-10.44); Carbon Dioxide 24 mmol/L (22-29); Chloride 101 mmol/L (98-107); Glucose 198 mg/dL (70-105); Potassium 5.1 mmol/L (3.5-5.1); Sodium 134 mmol/L (136-145)
[2025-05-06 07:13] LABS: Anisocytosis SLIGHT = 6-15 cells HPF (0-5); Macrocytosis MODERATE=16-30 cells HPF (0-5); Platelet Adequacy Comment Platelets Decreased; Polychromasia SLIGHT = 2-3 cells HPF (0-2)
[2025-05-07 06:23] LABS: Anion Gap 15 mmol/L (10-20); BUN (Urea Nitrogen) 21 mg/dL (8.4-25.7); Calc. Creatinine Clearance 22 mL/min (70-130); Calcium 8.4 mg/dL (7.8-10.44); Carbon Dioxide 24 mmol/L (22-29); Chloride 103 mmol/L (98-107); Glucose 215 mg/dL (70-105); Potassium 4.5 mmol/L (3.5-5.1); Sodium 137 mmol/L (136-145)
[2025-05-07 09:00] LABS: #Basophils 0.03 10x3/uL (0.0-0.2); #Eosinophils 0.17 10x3/uL (0.0-0.7); #Monocytes 0.34 10x3/uL (0.11-0.59); #Neutrophils 1.52 10x3/uL (1.40-6.50); %Basophils 1.3 % (0.0-1.0); %Eosinophils 6.0 % (0.0-10.0); %Lymphocytes 13.4 % (21.0-51.0); %Monocytes 14.3 % (0.0-10.0); %Neutrophils 63.9 % (42.0-75.0); Anisocytosis SLIGHT = 6-15 cells (100X) (0-5/hpf); Hematocrit 25.1 % (42.0-52.0); Hemoglobin 7.9 g/dL (14.0-18.0); Macrocytosis SLIGHT = 6-15 cells (100X) (0-5/hpf); Mean Corpuscular Hemoglobin 32.3 pg (27.0-31.0); Mean Corpuscular Volume 100.8 fL (78.0-98.0); Plasma Cells 0 % (0-0); Platelet Adequacy Comment Appears Decreased; Platelet Count 46 10x3/uL (130-400); Red Blood Cell (RBC) Count 2.54 mill/uL (4.70-6.10); White Blood Cell (WBC) Count 2.38 10x3/uL (4.8-10.8)
[2025-05-08] MEDS: diphenhydrAMINE 25 MG CAP PO SCH (02:41)
[2025-05-08 07:03] LABS: #Basophils 0.03 10x3/uL (0.0-0.2); #Eosinophils 0.16 10x3/uL (0.0-0.7); #Monocytes 0.28 10x3/uL (0.11-0.59); #Neutrophils 1.42 10x3/uL (1.40-6.50); %Basophils 1.4 % (0.0-1.0); %Eosinophils 7.3 % (0.0-10.0); %Lymphocytes 13.7 % (21.0-51.0); %Monocytes 12.8 % (0.0-10.0); %Neutrophils 64.8 % (42.0-75.0); Hematocrit 24.6 % (42.0-52.0); Hemoglobin 7.5 g/dL (14.0-18.0); Mean Corpuscular Hemoglobin 31.6 pg (27.0-31.0); Mean Corpuscular Volume 103.8 fL (78.0-98.0); Platelet Count 43 10x3/uL (130-400); Red Blood Cell (RBC) Count 2.37 mill/uL (4.70-6.10); White Blood Cell (WBC) Count 2.19 10x3/uL (4.8-10.8)
[2025-05-08 07:42] LABS: Anion Gap 14 mmol/L (10-20); BUN (Urea Nitrogen) 30 mg/dL (8.4-25.7); Calc. Creatinine Clearance 14 mL/min (70-130); Calcium 8.5 mg/dL (7.8-10.44); Carbon Dioxide 23 mmol/L (22-29); Chloride 104 mmol/L (98-107); Glucose 196 mg/dL (70-105); Potassium 4.7 mmol/L (3.5-5.1); Sodium 136 mmol/L (136-145)
[2025-05-09 06:49] LABS: #Basophils 0.03 10x3/uL (0.0-0.2); #Eosinophils 0.22 10x3/uL (0.0-0.7); #Monocytes 0.30 10x3/uL (0.11-0.59); #Neutrophils 1.57 10x3/uL (1.40-6.50); %Basophils 1.2 % (0.0-1.0); %Eosinophils 9.0 % (0.0-10.0); %Lymphocytes 13.1 % (21.0-51.0); %Monocytes 12.3 % (0.0-10.0); %Neutrophils 64.4 % (42.0-75.0); Hematocrit 24.6 % (42.0-52.0); Hemoglobin 7.7 g/dL (14.0-18.0); Mean Corpuscular Hemoglobin 32.4 pg (27.0-31.0); Mean Corpuscular Volume 103.4 fL (78.0-98.0); Platelet Count 44 10x3/uL (130-400); Red Blood Cell (RBC) Count 2.38 mill/uL (4.70-6.10); White Blood Cell (WBC) Count 2.44 10x3/uL (4.8-10.8)
[2025-05-09 06:53] LABS: Anion Gap 14 mmol/L (10-20); BUN (Urea Nitrogen) 39 mg/dL (8.4-25.7); Calc. Creatinine Clearance 12 mL/min (70-130); Calcium 8.4 mg/dL (7.8-10.44); Carbon Dioxide 22 mmol/L (22-29); Chloride 104 mmol/L (98-107); Glucose 233 mg/dL (70-105); Potassium 5.1 mmol/L (3.5-5.1); Sodium 135 mmol/L (136-145)
[2025-05-10 06:04] LABS: Hematocrit 23.3 % (42.0-52.0); Hemoglobin 7.3 g/dL (14.0-18.0); Mean Corpuscular Hemoglobin 32.3 pg (27.0-31.0); Mean Corpuscular Volume 103.1 fL (78.0-98.0); Platelet Count 39 10x3/uL (130-400); Red Blood Cell (RBC) Count 2.26 mill/uL (4.70-6.10); White Blood Cell (WBC) Count 2.57 10x3/uL (4.8-10.8)
[2025-05-10 06:18] LABS: ALT (SGPT) 19 U/L (Less than 45); AST (SGOT) 32 U/L (11-34); Albumin 2.0 g/dL (3.1-4.5); Alkaline Phosphatase 170 U/L (40-110); Anion Gap 13 mmol/L (10-20); BUN (Urea Nitrogen) 24 mg/dL (8.4-25.7); Bilirubin, Total 0.6 mg/dL (0.3-1.2); Calc. Creatinine Clearance 15 mL/min (70-130); Calcium 8.2 mg/dL (7.8-10.44); Carbon Dioxide 26 mmol/L (22-29); Chloride 102 mmol/L (98-107); Globulin 4.0 g/dL (2.4-3.5); Glucose 175 mg/dL (70-105); Magnesium 2.2 mg/dL (1.6-2.6); Potassium 5.0 mmol/L (3.5-5.1); Sodium 136 mmol/L (136-145)
[2025-05-10] MEDS ORDERED: Lidocaine 1% PF 5 ML VIAL ONE (10:10)
[2025-05-10] MEDS ORDERED: Sodium Bicarbonate 2.5 MEQ/5 ML SDV ONE (10:10)
[2025-05-10 12:39] LABS: RBC Count-Automated (BF) 36 /cu.mm; WBC/Nucleated-Auto (BF) 72 /cu.mm
[2025-05-10 12:47] LABS: BF Segmented Neutrophils 6 %; Cell Count Non Hematic 61 %
[2025-05-10 16:08] VITALS: BP 170/89; TEMP 97.4
== END 2025-05-10 18:45 | DRG 811 ==
LOC: ERS 13:48 → ERHOLD 17:58 → T4-B 21:38 → OBSVTOIN 05-03 14:45
PROVIDERS: ADMIT Internal Medicine; ATTEND Internal Medicine
PROC: 30233N1 Transfusion of Nonautologous Red Blood Cells into Peripheral Vein, Percutaneous Approach (ICD-10-PCS; 2025-05-02)
PROC: 5A1D70Z Performance of Urinary Filtration, Intermittent, Less than 6 Hours Per Day (ICD-10-PCS; 2025-05-05)
PROC: 3E03329 Introduction of Other Anti-infective into Peripheral Vein, Percutaneous Approach (ICD-10-PCS; principal; 2025-05-10)
DX: D62 Acute posthemorrhagic anemia (principal); I85.01 Esophageal varices with bleeding; N18.6 End stage renal disease; I12.0 Hypertensive chronic kidney disease with stage 5 chronic kidney disease or end stage renal disease; K76.6 Portal hypertension; D63.1 Anemia in chronic kidney disease; Z99.2 Dependence on renal dialysis; E11.22 Type 2 diabetes mellitus with diabetic chronic kidney disease; Z98.890 Other specified postprocedural states; D61.818 Other pancytopenia; E83.39 Other disorders of phosphorus metabolism; E87.5 Hyperkalemia; I48.91 Unspecified atrial fibrillation; K76.82 Hepatic encephalopathy; K70.31 Alcoholic cirrhosis of liver with ascites; D69.6 Thrombocytopenia, unspecified; Z86.73 Personal history of transient ischemic attack (TIA), and cerebral infarction without residual deficits; Z79.84 Long term (current) use of oral hypoglycemic drugs; Z79.899 Other long term (current) drug therapy
CPT/HCPCS: 36415; 36416; 36430; 49083; 76705; 80048; 80053; 80069; 82042; 82105; 83605; 83735; 84157; 85025; 85027; 85060; 85610; 85730; 86850; 86900; 86901; 89051; 90935; 97139; 99285; G0257; J0696; J1815; J2354; J2470; J2916; J7050; P9016; Q5105